=== PATIENT | female | born 1950 | race Caucasian/White ===

== ENCOUNTER 2021-02-13 14:25 | Outpatient (REF) | payer SELFPAY ==
--- NOTE | ~2021-02-13 | MM_ITS ---
EXAMINATION: MM SCREENING DIGITAL BREAST TOMOSYNTHESIS, BILATERAL CLINICAL INFORMATION: Screening. Asymptomatic. The lifetime risk of breast cancer based on the Tyrer-Cuzick Model is 5%. COMPARISON: Mammography: 05/27/2019, 04/30/2018, outside exam 08/28/2012 ([facility]) TECHNIQUE: Digital breast tomosynthesis is performed in both the craniocaudal and mediolateral oblique views along with computer-aided detection (CAD). Synthesized 2D images are generated from the tomosynthesis. FINDINGS: There are scattered areas of fibroglandular density (ACR BI-RADS breast composition Category b). Breast tissue composition borders on predominantly fatty. There is no developing density or interval mass or architectural abnormality. Dermal lesion is again seen overlying the posterior inferior medial left breast. No abnormal calcifications. The axilla and skin contours are unremarkable. MM/MM tomosynthesis screening BI IMPRESSION: No mammographic evidence of malignancy. ASSESSMENT: BI-RADS 2: Benign RECOMMENDATION: Routine annual mammography screening. This patient's information was entered into a reminder system with a target due date for their next mammogram.
== END 2021-02-13 14:26 | disposition home or self-care (01) ==
LOC: HO.MAMMO 14:25
PROVIDERS: Visit Provider Internal Medicine
DX: Z12.31 Encounter for screening mammogram for malignant neoplasm of breast (principal)
CPT/HCPCS: 77063; 77067

== ENCOUNTER 2024-11-02 12:57 | Outpatient (REF) | payer BC, MEDICARE, SELFPAY | END 2024-11-02 12:58 | disposition home or self-care (01) | LOC: HO.MAMMO 12:57 | PROVIDERS: Visit Provider Internal Medicine | DX: Z12.31 Encounter for screening mammogram for malignant neoplasm of breast (principal) | CPT/HCPCS: 77063; 77067 ==

== ENCOUNTER → 2024-11-02 13:00 | Outpatient (BNV) | payer BC, MEDICARE, SELFPAY | PROVIDERS: Visit Provider Internal Medicine | DX: Z12.31 Encounter for screening mammogram for malignant neoplasm of breast (principal) | CPT/HCPCS: 77063; 77067 ==

== ENCOUNTER 2025-05-21 10:05 | Outpatient (REF) | payer BC, MEDICARE, OTHER, SELFPAY ==
--- OUTSIDE RECORDS SUMMARY | 2025-05-21 11:20 | XMS_ITS | Encounter Summary ---
Author Organization [facility] [place] [address] Care Team Providers Care Dispensing And Measuring Optician Name Role Phone Bi Morfin MD Primary Care Provider [phone] Encounter Details Date Type Department Care Team (Late st Contact Info) Description 02/12/2025 Lab Requisition [facility] - Main Lab [address] [place] [address] Bella Maravilla MD [address] [place] [address] Essential (primary) hypertension Social History Tobacco Use Types Packs/Day Years Used Date Smoking Tobacco: Never Assessed Comments Unknown Sex and Gender Information Value Date Recorded Sex Assigned at Not on file Legal Sex Female 11:38 AM EDT Gender Identity Not on file Sexual Orientation Not on file documented as of this encounter Plan of Treatment Not on file documented as of this encounter Procedures Procedure Name Priority Date/Time Associated Diagnosis Comments COMPLETE BLOOD COUNT Routine 02/15/2025 5:19 AM EDT Essential (primary) hypertension BASIC METABOLIC PANEL Routine 02/15/2025 5:19 AM EDT Essential (primary) hypertension documented in this encounter Results * (ABNORMAL) Complete blood count (02/15/2025 5:19 AM EDT) [facility] Signature WBC 5.3 4.8 - 10.8 K/[facility] LAB HEMETOLOGY METHOD 02/15/2025 10:40 AM EDT [facility] RBC 3.70(L) 3.80 - 4.80 M/mcL LAB HEMETOLOGY METHOD 02/15/2025 10:40 AM [facility] LAB Hemoglobin 11.4(L) 11.5 - 16.0 g/dL LAB HEMETOLOGY METHOD 02/15/2025 10:40 AM [facility] LAB Hematocrit 34.9(L) 35.0 - 47.0 % LAB HEMETOLOGY METHOD 02/15/2025 10:40 AM [facility] LAB MCV 94.1 79.0 - 98.0 FL LAB HEMETOLOGY METHOD 02/15/2025 10:40 AM [facility] LAB MCH 30.7 27.0 - 32.0 pcg LAB HEMETOLOGY METHOD 02/15/2025 10:40 AM [facility] LAB MCHC 32.7 32.0 - 37.0 g/dL LAB HEMETOLOGY METHOD 02/15/2025 10:40 AM [facility] LAB RDW 14.3 11.0 - 15.0 % LAB HEMETOLOGY METHOD 02/15/2025 10:40 AM [facility] LAB Platelets 208 130 - 400 K/mcL LAB HEMETOLOGY METHOD 02/15/2025 10:40 AM [facility] LAB MPV 9.4 7.0 - 11.0 FL LAB HEMETOLOGY METHOD 02/15/2025 10:40 AM [facility] LAB NRBC 0.0 <1.0 % LAB HEMETOLOGY METHOD 02/15/2025 10:40 AM [facility] LAB NRBC Absolute 0.00 <0.10 K/mcL LAB HEMETOLOGY METHOD 02/15/2025 10:40 AM [facility] LAB Blood Venous blood specimen / Unknown Venipuncture / Unknown 02/15/2025 5:19 AM EDT 02/15/2025 10:08 AM EDT us Bella Maravilla MD LAB BLOOD ORDERABLES Final Resul t [facility] [address] [place] [address], [place] [phone] * (ABNORMAL) Basic metabolic panel (02/15/2025 5:19 AM EDT) Sodium 146(H) 133 - 145 mmol/L LAB CHEMISTRY METHOD 02/15/2025 11:48 AM [facility] Potassium 3.3(L) 3.5 - 5.5 mmol/L LAB CHEMISTRY METHOD 02/15/2025 11:48 AM [facility] Chloride 106 96 - 110 mmol/L LAB CHEMISTRY METHOD 02/15/2025 11:48 AM [facility] CO2 29 21 - 32 mmol/L LAB CHEMISTRY METHOD 02/15/2025 11:48 AM [facility] Anion Gap 11 3 - 11 LAB CHEMISTRY METHOD 02/15/2025 11:48 AM [facility] Glucose 83 70 - 100 mg/dL LAB CHEMISTRY METHOD 02/15/2025 11:48 AM [facility] BUN 14 5 - 25 mg/dL LAB CHEMISTRY METHOD 02/15/2025 11:48 AM [facility] Creatinine 0.66 0.50 - 1.10 mg/dL LAB CHEMISTRY METHOD 02/15/2025 11:48 AM [facility] LAB eGFR 91 >=60 mL/min/1. 73m2 LAB CHEMISTRY METHOD 02/15/2025 11:48 AM [facility] LAB Comment:Calculation based on the Chronic Kidney Disease Epidemiology Collaboration (CKD-EPI) equation refit without adjustment for race. BUN/Creatinine Ratio 21.2 LAB CHEMISTRY METHOD 02/15/2025 11:48 AM EDT [facility] Calcium 9.7 8.5 - 10.5 mg/dL LAB CHEMISTRY METHOD 02/15/2025 11:48 AM EDT [facility] Blood Venous blood specimen / Unknown Venipuncture / Unknown 02/15/2025 5:19 AM EDT 02/15/2025 10:08 AM EDT us Bella Maravilla MD LAB BLOOD ORDERABLES Final Resul t [facility] [address] [place] [address], documented in this encounter Visit Diagnoses Diagnosis Essential (primary) hypertension Unspecified essential hypertension documented in this encounter Care Teams Dispensing And Measuring Optician Relationship Specialty Start Date End Date Bi Morfin MD [address] [place] [address] PCP - General Internal Medicine 01/18/25 documented as of this encounter
--- OUTSIDE RECORDS SUMMARY | 2025-05-21 11:20 | XMS_ITS | Patient Health Record ---
Author Organization [facility] Address [address] [place] [address] Care Team Providers Care Epic Trainer Name Role Phone Caleb SHAH, Yohana Primary Care Provider Anuel Paredes Unavailable [phone] Zoë SHAH, Madelin Unavailable Unavailable Reason For Referral No Information Social History Tobacco Use: Social History Observation Description Date Details (start date - stop date) Never Smoker NA - NA Tobacco Use/Smoking Question Answer Notes Patient is a nonsmoker Plan Of Treatment No Information Insurance Providers Payer Name Payer Address Payer Phone Subscriber Number Group Number Insured Name Patient Relationship to Insured Coverage Start Date Coverage End Date MEDICARE OF [place] [address] [facility] [id number] [id number] MARY DEMPSEY Self - patient is the insured Medical (General) History Medical History History ICD Code hypothyroidism hypertension Surgical History Surgery Date(Month/Year) hysterectomy bilateral hip replacement in 2002 tonsillectomy
--- OUTSIDE RECORDS SUMMARY | 2025-05-21 11:20 | XMS_ITS | Encounter Summary ---
Author Organization [facility] [place] [address] Care Team Providers Care Reach Truck Operator Name Role Phone Bi Morfin MD Primary Care Provider [phone] Encounter Details Date Type Department Care Team (Late st Contact Info) Description 02/19/2025 Lab Requisition [facility] - Main Lab [address] [facility] [place] [address] Bella Maravilla MD [address] [place] [address] Essential (primary) hypertension Social History Tobacco Use Types Packs/Day Years Used Date Smoking Tobacco: Never Assessed Comments Unknown Sex and Gender Information Value Date Recorded Sex Assigned at Not on file Legal Sex Female 11:38 AM EDT Gender Identity Not on file Sexual Orientation Not on file documented as of this encounter Plan of Treatment Not on file documented as of this encounter Visit Diagnoses Diagnosis Essential (primary) hypertension Unspecified essential hypertension documented in this encounter Care Teams Reach Truck Operator Relationship Specialty Start Date End Date Bi Morfin MD [address] [place] [address] PCP - General Internal Medicine 01/18/25 documented as of this encounter
--- OUTSIDE RECORDS SUMMARY | 2025-05-21 11:20 | XMS_ITS | Encounter Summary ---
Author Organization [facility] Address [address] [place] [address] Care Team Providers Care Bulb Grower Name Role Phone Bi Morfin MD Primary Care Provider [phone] Encounter Details Date Type Department Care Team (Latest Contact Info) Description 02/08/2025 Lab Requisition [facility] - Main Lab [address] [facility] [place] [address] Tanya Trotter PA [address] [place] [address] Essential (primary) hypertension; Hypothyroidism, unspecified; Vitamin D deficiency, unspecified; Type 2 diabetes mellitus without complications (CMS/HCC V24, CMS/[facility] V28) Social History Tobacco Use Types Packs/Day Years [...] Procedure Name Priority Date/Time Associated Diagnosis Comments VITAMIN D 25 HYDROXY Routine 02/08/2025 5:10 AM EDT Essential (primary) hypertension Hypothyroidism, unspecified Vitamin D deficiency, unspecified Type 2 diabetes mellitus without complications (CMS/HCC V24, CMS/HCC V28) COMPLETE BLOOD COUNT Routine 02/08/2025 5:10 AM EDT Essential (primary) hypertension Hypothyroidism, unspecified Vitamin D deficiency, unspecified Type 2 diabetes mellitus without complications (CMS/HCC V24, CMS/HCC V28) THYROID STIMULATING HORMONE Routine 02/08/2025 5:10 AM EDT Essential (primary) hypertension Hypothyroidism, unspecified Vitamin D deficiency, unspecified Type 2 diabetes mellitus without complications ([facility] V24, [facility] V28) MAGNESIUM Routine 02/08/2025 5:10 AM EDT Essential (primary) hypertension Hypothyroidism, unspecified Vitamin D deficiency, unspecified Type 2 diabetes mellitus without complications ([facility] V24, [facility] V28) HEMOGLOBIN A1C Routine 02/08/2025 5:10 AM EDT Essential (primary) hypertension Hypothyroidism, unspecified Vitamin D deficiency, unspecified Type 2 diabetes mellitus without complications ([facility] V24, [facility] V28) FOLATE Routine 02/08/2025 5:10 AM EDT Essential (primary) hypertension Hypothyroidism, unspecified Vitamin D deficiency, unspecified Type 2 diabetes mellitus without complications ([facility] V24, [facility] V28) COMPREHENSIVE METABOLIC PANEL Routine 02/08/2025 5:10 AM EDT Essential (primary) hypertension Hypothyroidism, unspecified Vitamin D deficiency, unspecified Type 2 diabetes mellitus without complications ([facility] V24, [facility] V28) documented in this encounter Results * Hemoglobin A1c (02/08/2025 5:10 AM EDT) Hemoglobin A1C 4.8 <6.5 % LAB CHEMISTRY METHOD 02/08/2025 2:24 PM EDT [facility] Mean Bld Glu Estim. 91 mg/dL LAB CHEMISTRY METHOD 02/08/2025 2:24 PM EDT [facility] Blood Venous blood specimen / Unknown Venipuncture / Unknown 02/08/2025 5:10 AM EDT 02/08/2025 10:14 AM EDT us Tanya RAMIREZ LAB BLOOD ORDERABLES Final Resu lt [facility] [address] [place] [address], [place] [phone] * Vitamin D 25 hydroxy (02/08/2025 5:10 AM EDT) Pathologist [facility] Vit D, 25-Hydroxy 35.5 30.0 - 80.0 ng/mL LAB CHEMISTRY METHOD 02/08/2025 3:10 PM EDT [facility] Blood Venous blood specimen / Unknown Venipuncture / Unknown 02/08/2025 5:10 AM EDT 02/08/2025 10:14 AM EDT us Tanya RAMIREZ LAB BLOOD ORDERABLES Final Resu lt Performing Organization Address [facility]/ZIP Co de Phone Number [facility] [address] [place] [address], * Magnesium (02/08/2025 5:10 AM EDT) [facility] Magnesium 2.1 1.9 - 2.6 mg/dL LAB CHEMISTRY METHOD 02/08/2025 2:07 PM EDT [facility] Blood Venous blood specimen / Unknown Venipuncture / Unknown 02/08/2025 5:10 AM EDT 02/08/2025 10:14 AM EDT us Tanya RAMIREZ LAB BLOOD ORDERABLES Final Resu lt [facility] [address] [place] [address], * Folate (02/08/2025 5:10 AM EDT) [facility] Folate 16.1 2.8 - 17.0 ng/ml LAB CHEMISTRY METHOD 02/08/2025 2:24 PM EDT [facility] Blood Venous blood specimen / Unknown Venipuncture / Unknown 02/08/2025 5:10 AM EDT 02/08/2025 10:14 AM EDT us Tanya RAMIREZ LAB BLOOD ORDERABLES Final Resu lt Performing Organization Address [facility]/ZIP Co de Phone Number [facility] [address] [place] [address], [place] [phone] * Thyroid stimulating hormone (02/08/2025 5:10 AM EDT) [facility] TSH 4.00 0.40 - 4.00 mcIU/mL LAB CHEMISTRY METHOD 02/08/2025 3:10 PM EDT [facility] Blood Venous blood specimen / Unknown Venipuncture / Unknown 02/08/2025 5:10 AM EDT 02/08/2025 10:14 AM EDT us Tanya RAMIREZ LAB BLOOD ORDERABLES Final Resu lt Performing Organization Address [facility] Co de Phone Number [facility] [address] [place] [address], [place] [phone] * (ABNORMAL) Comprehensive metabolic panel (02/08/2025 5:10 AM EDT) [facility] Sodium 138 133 - 145 mmol/L LAB CHEMISTRY METHOD 02/08/2025 2:07 PM EDT [facility] Potassium 3.7 3.5 - 5.5 mmol/L LAB CHEMISTRY METHOD 02/08/2025 2:07 PM EDT [facility] Chloride 100 96 - 110 mmol/L LAB CHEMISTRY METHOD 02/08/2025 2:07 PM EDT [facility] CO2 31 21 - 32 mmol/L LAB CHEMISTRY METHOD 02/08/2025 2:07 PM T [facility] Anion Gap 7 3 - 11 LAB CHEMISTRY METHOD 02/08/2025 2:07 PM EDT [facility] Glucose 81 70 - 100 mg/dL LAB CHEMISTRY METHOD 02/08/2025 2:07 PM [facility] BUN 17 5 - 25 mg/dL LAB CHEMISTRY METHOD 02/08/2025 2:07 PM [facility] Creatinine 0.70 0.50 - 1.10 mg/dL LAB CHEMISTRY METHOD 02/08/2025 2:07 PM [facility] eGFR 90 >=60 mL/min/1. 73m2 LAB CHEMISTRY METHOD 02/08/2025 2:07 PM [facility] Comment:Calculation based on the Chronic Kidney Disease Epidemiology Collaboration (CKD-EPI) equation refit without adjustment for race. BUN/Creatinine Ratio 24.3 LAB CHEMISTRY METHOD 02/08/2025 2:07 PM [facility] Calcium 9.9 8.5 - 10.5 mg/dL LAB CHEMISTRY METHOD 02/08/2025 2:07 PM [facility] AST (SGOT) 13 10 - 42 unit/L LAB CHEMISTRY METHOD 02/08/2025 2:07 PM [facility] ALT (SGPT) 17 10 - 60 unit/L LAB CHEMISTRY METHOD 02/08/2025 2:07 PM [facility] Alkaline Phosphatase 105 42 - 121 unit/L LAB CHEMISTRY METHOD 02/08/2025 2:07 PM [facility] Total Protein 5.8(L) 6.0 - 8.0 g/dL LAB CHEMISTRY METHOD 02/08/2025 2:07 PM [facility] Albumin 3.6 3.2 - 5.0 g/dL LAB CHEMISTRY METHOD 02/08/2025 2:07 PM [facility] Total Bilirubin 1.7(H) 0.0 - 1.4 mg/dL LAB CHEMISTRY METHOD 02/08/2025 2:07 PM [facility] Blood Venous blood specimen / Unknown Venipuncture / Unknown 02/08/2025 5:10 AM EDT 02/08/2025 10:14 AM EDT us Tanya RAMIREZ LAB BLOOD ORDERABLES Final Resu lt [facility] [address] [place] [address], [place] [phone] * Complete blood count (02/08/2025 5:10 AM EDT) WBC 5.6 4.8 - 10.8 K/mcL LAB HEMETOLOGY METHOD 02/08/2025 11:38 AM EDT [facility] RBC 3.80 3.80 - 4.80 M/mcL LAB HEMETOLOGY METHOD 02/08/2025 11:38 AM EDT [facility] Hemoglobin 11.8 11.5 - 16.0 g/dL LAB HEMETOLOGY METHOD 02/08/2025 11:38 AM EDT [facility] Hematocrit 36.2 35.0 - 47.0 % LAB HEMETOLOGY METHOD 02/08/2025 11:38 AM EDT [facility] MCV 95.0 79.0 - 98.0 FL LAB HEMETOLOGY METHOD 02/08/2025 11:38 AM EDT [facility] MCH 31.0 27.0 - 32.0 pcg LAB HEMETOLOGY METHOD 02/08/2025 11:38 AM EDT [facility] MCHC 32.6 32.0 - 37.0 g/dL LAB HEMETOLOGY METHOD 02/08/2025 11:38 AM EDT [facility] RDW 14.6 11.0 - 15.0 % LAB HEMETOLOGY METHOD 02/08/2025 11:38 AM T [facility] Platelets 233 130 - 400 K/mcL LAB HEMETOLOGY METHOD 02/08/2025 11:38 AM EDT [facility] MPV 9.3 7.0 - 11.0 FL LAB HEMETOLOGY METHOD 02/08/2025 11:38 AM EDT [facility] NRBC 0.0 <1.0 % LAB HEMETOLOGY METHOD 02/08/2025 11:38 AM EDT [facility] NRBC Absolute 0.00 <0.10 K/mcL LAB HEMETOLOGY METHOD 02/08/2025 11:38 AM EDT [facility] Blood Venous blood specimen / Unknown Venipuncture / Unknown 02/08/2025 5:10 AM EDT 02/08/2025 10:14 AM EDT us Tanya RAMIREZ LAB BLOOD ORDERABLES Final Resu lt [facility] [address] [place] [address], documented in this encounter Visit Diagnoses Diagnosis Essential (primary) hypertension Unspecified essential hypertension Hypothyroidism, unspecified Vitamin D deficiency, unspecified Type 2 diabetes mellitus without complications (CMS/HCC V24, CMS/HCC V28) documented in this encounter Care Teams Bulb Grower Relationship Specialty Start Date End Date Bi Morfin MD [address] [place] [address] PCP - General Internal Medicine 01/18/25 documented as of this encounter
--- OUTSIDE RECORDS SUMMARY | 2025-05-21 11:20 | XMS_ITS | Encounter Summary ---
Author Organization [facility] [place] [address] Care Team Providers Care Plant Quality Manager Name Role Phone Bi Morfin MD Primary Care Provider [phone] Encounter Details Date Type Department Care Team (Late st Contact Info) Description 02/17/2025 Lab Requisition [facility] - Main Lab [address] [facility] [place] [address] Bella Maravilla MD [address] [place] [address] Hypokalemia Social History Tobacco Use Types Packs/Day Years [...] Procedure Name Priority Date/Time Associated Diagnosis Comments MAGNESIUM Routine 02/18/2025 5:24 AM EDT Hypokalemia BASIC METABOLIC PANEL Routine 02/18/2025 5:24 AM EDT Hypokalemia documented in this encounter Results * Magnesium (02/18/2025 5:24 AM EDT) Magnesium 1.9 1.9 - 2.6 mg/dL LAB CHEMISTRY METHOD 02/18/2025 11:11 AM EDT [facility] Blood Venous blood specimen / Unknown Venipuncture / Unknown 02/18/2025 5:24 AM EDT 02/18/2025 10:30 AM EDT us Bella Maravilla MD LAB BLOOD ORDERABLES Final Resul t [facility] [address] [place] [address], [place] [phone] * Basic metabolic panel (02/18/2025 5:24 AM EDT) Sodium 140 133 - 145 mmol/L LAB CHEMISTRY METHOD 02/18/2025 11:[address] [facility] Potassium 3.7 3.5 - 5.5 mmol/L LAB CHEMISTRY METHOD 02/18/2025 11:[address] [facility] Chloride 103 96 - 110 mmol/L LAB CHEMISTRY METHOD 02/18/2025 11:[address] [facility] CO2 32 21 - 32 mmol/L LAB CHEMISTRY METHOD 02/18/2025 11:[address] [facility] Anion Gap 5 3 - 11 LAB CHEMISTRY METHOD 02/18/2025 11:[address] [facility] Glucose 86 70 - 100 mg/dL LAB CHEMISTRY METHOD 02/18/2025 11:[address] [facility] BUN 19 5 - 25 mg/dL LAB CHEMISTRY METHOD 02/18/2025 11:[address] [facility] Creatinine 0.64 0.50 - 1.10 mg/dL LAB CHEMISTRY METHOD 02/18/2025 11:[address] [facility] eGFR 92 >=60 mL/min/1. 73m2 LAB CHEMISTRY METHOD 02/18/2025 11:[address] [facility] Comment:Calculation based on the Chronic Kidney Disease Epidemiology Collaboration (CKD-EPI) equation refit without adjustment for race. BUN/Creatinine Ratio 29.7 LAB CHEMISTRY METHOD 02/18/2025 11:11 AM EDT [facility] Calcium 10.1 8.5 - 10.5 mg/dL LAB CHEMISTRY METHOD 02/18/2025 11:11 AM EDT [facility] Blood Venous blood specimen / Unknown Venipuncture / Unknown 02/18/2025 5:24 AM EDT 02/18/2025 10:30 AM EDT us Bella Maravilla MD LAB BLOOD ORDERABLES Final Resul t [facility] [address] [place] [address], documented in this encounter Visit Diagnoses Diagnosis Hypokalemia Hypopotassemia documented in this encounter Care Teams Plant Quality Manager Relationship Specialty Start Date End Date Bi Morfin MD [address] [place] [address] PCP - General Internal Medicine 01/18/25 documented as of this encounter
--- OUTSIDE RECORDS SUMMARY | 2025-05-21 11:21 | XMS_ITS | Clinical Summary ---
Author Organization [facility] Address [address] [place] [address] Phone Care Team Providers Care Pipe Setter Name Role Phone iB Morfin MD Primary Care Provider [phone] Allergies No known active allergies Medications oxyCODONE (ROXICODONE) 5 mg immediate release tablet Take 1 tablet (5 mg total) by mouth every 6 (six) hours if needed for severe pain for up to 12 doses. Partial fill on request Max Daily Amount: 20 mg 12 tablet 5 Active metFORMIN (GLUCOPHAGE) 500 mg tablet Take 1 tablet (500 mg total) by mouth 3 (three) times a day. Active atenoloL (TENORMIN) 50 mg tablet Take 1 tablet (50 mg total) by mouth 1 (one) time each day. Active celecoxib (CeleBREX) 200 mg capsule Take 1 capsule (200 mg total) by mouth 1 (one) time each day with breakfast. Active furosemide (LASIX) 20 mg tablet Take 1 tablet (20 mg total) by mouth 1 (one) time each day. Active levothyroxine (SYNTHROID, LEVOTHROID) 100 mcg tablet Take 1 tablet (100 mcg total) by mouth 1 (one) time each day before breakfast. Active fluticasone propionate (FLOVENT DISKUS) 50 mcg/actuation diskus inhaler Inhale 2 puffs by mouth 1 (one) time each day. Rinse mouth with water after use to reduce aftertaste and incidence of candidiasis. Do not swallow. Active loratadine (CLARITIN) 10 mg tablet Take 1 tablet (10 mg total) by mouth 1 (one) time each day. Active oxyCODONE (OXY-IR) 5 mg immediate release capsule Take 1 capsule (5 mg total) by mouth every 6 (six) hours if needed for severe pain for up to 10 doses. Max Daily Amount: 20 mg 10 capsule Active Encounters Date Type Department Care Team Description 02/19/2025 Lab Requisition [facility] Lab [address] [place] [address] Bella Maravilla MD Essential (primary) hypertension 02/17/2025 Lab Requisition [facility] [address] [place] [address] Bella Maravilla MD Hypokalemia from Last 3 Months Social History Tobacco Use Types Packs/Day Years Used Date Smoking Tobacco: Never Assessed Comments Unknown Sex and Gender Information Value Date Recorded Sex Assigned at Not on file Legal Sex Female 11:38 AM EDT Gender Identity Not on file Sexual Orientation Not on file Last Filed Vital Signs Vital Sign Reading Time Taken Comments Blood Pressure 143/64 02/05/2025 2:29 PM EDT Pulse 67 02/05/2025 2:29 PM EDT Temperature 36.7 C (98.1 F) 02/05/2025 2:29 PM EDT Respiratory Rate 18 02/05/2025 2:29 PM EDT Oxygen Saturation 97% 02/05/2025 2:29 PM EDT Inhaled Oxygen Concentration - - Weight 103 kg (228 lb) 02/04/2025 7:49 PM EDT Height 163.8 cm (5' 4.5 ) 02/04/2025 7:49 PM EDT Body Mass Index 38.53 02/04/2025 7:49 PM EDT Plan of Treatment Health Maintenance Due Date Last Done Comments DTaP,Tdap,and Td Vaccines (1 - Tdap) 1969 Pneumococcal Vaccine: 50+ Years (1 of 2 - PCV) 1967 Zoster Vaccines (1 of 2) 1998 Cholesterol Screening (Lipid Panel) 06/09/2024 Falls Risk Assessment 06/09/2024 Hepatitis C Screening 06/09/2024 Medicare Annual Wellness Visit 06/09/2024 Osteoporosis Screening (Bone Density Screening) 06/09/2024 Social Influencers of Health Screening 06/09/2024 Depression Screening 08/26/2024 COVID-19 Vaccine ( season) 2025 05/29/2024, 03/09/2024, 05/13/2023, Additional history exists Influenza Vaccine (#1) 2025 , 04/28/2023, 06/08/2022 Hypertension/CHF/CAD Annual BMP Blood Test 02/18/2026 02/18/2025, 02/15/2025, 02/08/2025, Additional history exists RSV Immunization Adult Patients Completed 06/17/2023 HIB Vaccines Aged Out No longer eligi ble based on patient's age to complete this topic HPV Vaccines Aged Out No longer eligi ble based on patient's age to complete this topic Hepatitis A Vaccines Aged Out No long er eligible based on patient's age to complete this topic Hepatitis B Vaccines Aged Out No long er eligible based on patient's age to complete this topic IPV Vaccines Aged Out No longer eligi ble based on patient's age to complete this topic MMR Vaccines Aged Out No longer eligi ble based on patient's age to complete this topic Meningococcal ACWY Vaccine Aged Out N o longer eligible based on patient's age to complete this topic Meningococcal B Vaccine Aged Out No l onger eligible based on patient's age to complete this topic RSV Immunization Patients Under 20 months Aged Out No longer eligible based on patient's age to complete this topic Varicella Vaccines Aged Out No longer eligible based on patient's age to complete this topic Procedures Procedure Name Priority Date/Time Associated Diagnosis Comments MAGNESIUM Routine 02/18/2025 5:24 AM EDT Hypokalemia BASIC METABOLIC PANEL Routine 02/18/2025 5:24 AM EDT Hypokalemia from Last 3 Months Results * Magnesium (02/18/2025 5:24 AM EDT) Magnesium 1.9 1.9 - 2.6 mg/dL LAB CHEMISTRY METHOD 02/18/2025 11:11 AM EDT [facility] Blood Venous blood specimen / Unknown Venipuncture / Unknown 02/18/2025 5:24 AM EDT 02/18/2025 10:30 AM EDT us Bella Maravilla MD LAB BLOOD ORDERABLES Final Resul t [facility] [address] [place] [address], * Basic metabolic panel (02/18/2025 5:24 AM EDT) Pathologist [facility] Sodium 140 133 - 145 mmol/L LAB CHEMISTRY METHOD 02/18/2025 11:11 AM [facility] Potassium 3.7 3.5 - 5.5 mmol/L LAB CHEMISTRY METHOD 02/18/2025 11:11 AM [facility] Chloride 103 96 - 110 mmol/L LAB CHEMISTRY METHOD 02/18/2025 11:11 AM [facility] CO2 32 21 - 32 mmol/L LAB CHEMISTRY METHOD 02/18/2025 11:11 AM [facility] Anion Gap 5 3 - 11 LAB CHEMISTRY METHOD 02/18/2025 11:11 AM [facility] Glucose 86 70 - 100 mg/dL LAB CHEMISTRY METHOD 02/18/2025 11:11 AM [facility] BUN 19 5 - 25 mg/dL LAB CHEMISTRY METHOD 02/18/2025 11:11 AM [facility] Creatinine 0.64 0.50 - 1.10 mg/dL LAB CHEMISTRY METHOD 02/18/2025 11:11 AM [facility] LAB eGFR 92 >=60 mL/min/1. 73m2 LAB CHEMISTRY METHOD 02/18/2025 11:11 AM [facility] LAB Comment:Calculation based on the Chronic Kidney Disease Epidemiology Collaboration (CKD-EPI) equation refit without adjustment for race. BUN/Creatinine Ratio 29.7 LAB CHEMISTRY METHOD 02/18/2025 11:11 AM EDT [facility] Calcium 10.1 8.5 - 10.5 mg/dL LAB CHEMISTRY METHOD 02/18/2025 11:11 AM EDT [facility] Blood Venous blood specimen / Unknown Venipuncture / Unknown 02/18/2025 5:24 AM EDT 02/18/2025 10:30 AM EDT us Bella Maravilla MD LAB BLOOD ORDERABLES Final Resul t [facility] [address] [place] [address], [place] [phone] from Last 3 Months Insurance MEDICARE [facility] Member Subscriber Plan / Payer (Ef fective 2024-Present) Name:MARY SALGUERO Relation to Subscriber:Spouse Name:CHAMP YADAV Dionisio Date of :1899 Address: [address] [place] [id number] Payer ID:[id number] Group ID:[id number] Type:Not on file Address: [facility] [id number] [place] [address] [facility] Advance Directives Documents on File Type Date Recorded Patient Journeyman Sheet Metal Worker Expl anation Advance Directives and Livin g Will 02/10/2025 2:14 PM PROXY Care Teams Pipe Setter Relationship Specialty Start Date End Date Bi Morfin MD [address] [place], [place] [address]A[place] lees PCP - General Internal Medicine 01/18/25
[2025-05-21 13:22] LABS: Appearance Urine Clear; Glucose Urine UA Negative (Negative); PH 6.5 (5.0-9.0); Specific Gravity - Urine 1.010 (1.005-1.025); UMIC TRIGGER UA YES
[2025-05-21 13:29] LABS: Hematocrit 39.0 % (37.0-47.0); Hemoglobin 13.0 g/dl (12.0-16.0); Mean Corpuscular HGB Conc 33.3 g/dl (31.0-35.0); Mean Corpuscular Hemoglobin 30.5 pg (27.0-33.0); Mean Corpuscular Volume 91.5 fL (80.0-98.0); NRBC Abs Auto 0.000 X10*3/uL (0.0-0.012); NRBC Pct Auto 0.0 /100WBC (0.0-0.2); Platelet Count 216 X10*3/uL (160-400); Red Blood Count 4.26 X10*6/uL (4.20-5.50); White Blood Count 5.2 X10*3/uL (4.8-10.8)
[2025-05-21 14:31] LABS: Alanine Aminotransferase 18 U/L (0-31); Albumin Level 4.4 g/dL (3.5-5.0); Alkaline Phosphatase 81 U/L (39-117); Anion Gap 11 (12-20); Aspartate Amino Transferase 23 U/L (5-31); Blood Urea Nitrogen 17 mg/dL (9-16); Calcium 9.6 mg/dL (8.4-10.2); Carbon Dioxide 29 mmol/L (22-29); Chloride 105 mmol/L (96-108); Cholesterol 183 mg/dL (<200); Estimated Glomerular Filt Rate > 60; HDL Cholesterol 35 mg/dL (>40); Potassium 4.0 mmol/L (3.3-5.1); Sodium 141 mmol/L (135-145); Thyroid Stimulating Hormone 2.95 uIU/mL (0.32-4.0); Total Protein 6.6 g/dL (6.5-8.0); Triglycerides 163 mg/dL (<150)
== END 2025-05-21 10:06 | disposition home or self-care (01) ==
LOC: HO.HMGCLDS 10:05
PROVIDERS: PCP Internal Medicine; Visit Provider Internal Medicine
DX: E03.9 Hypothyroidism, unspecified (principal)
CPT/HCPCS: 36415; 80048; 80061; 80076; 81001; 84443; 85027

== ENCOUNTER 2025-05-25 13:05 | Outpatient (AMB) | payer BC, MEDICARE, OTHER, SELFPAY ==
--- NOTE | 2025-05-25 13:26 | MHC.PC.OV ---
Vital Signs 05/25/25 13:29 05/25/25 13:42 Height 5 ft 4.96 in Weight 231 lb BMI 38.5 BP 172/72 H 158/70 H Respiration 16 Pulse 64 Pulse Source Pulse Oximeter Temp 97.8 F Temp Source Temporal Artery Scan Pulse Oximetry (%) 97 Oxygen Delivery Method Room Air Intake Visit Reasons: New Patient / Dr Morfin Load Planner Required: No Accompanied by: Spouse Allergies Flu shot Allergy (Mild, Uncoded 05/25/25 14:01) Unknown general anesthesia Allergy (Unknown, Uncoded 05/25/25 14:01) vomiting Medication List - Last Reconciled 05/25/25 by Ej Palacios MD atenolol 100 mg PO DAILY celecoxib 200 mg PO DAILY fluticasone propionate 50 mcg/actuation 2 sprays intranasal DAILY furosemide (Lasix) 20 mg PO QAM levothyroxine 100 mcg PO DAILY loratadine (Claritin) 10 mg PO DAILY metformin mg PO Tobacco use date assessed: 05/25/25 Fall risk assessment: 1 Fall in past year Last assessed Fall Risk: 05/25/25 Dental Screening Dental Screen Date: 05/25/25 Did you have a dental visit in the last 12 months?: No Did you have a dental problem in the last 6 months where you did not have access to dental care?: No Was dental information given to patient?: Patient has dentist HPI New Patient / Dr Morfin HPI Details 75-year-old female presents to the office to establish her medical care. Patient has had a fall and injured her right shoulder. She was diagnosed to have a humerus fracture. It has finally been decided that she would have surgery but the date is not fixed yet. Continues to have pain and limited motion in the right upper extremity. Patient is compliant with her other medications. Able to function and do all activities of daily living. [facility] Medical History (Updated 05/25/25 @ 14:05 by Ej Palacios MD) Hypothyroidism Hypertension Surgical History History of total hip arthroplasty Family History Mother Acute arthritis Father BP (high blood pressure) Social History Housing: House Alcohol intake: current Alcohol intake frequency: does not drink Patient Tobacco Use Status: Never used Tobacco service: No Current occupational status: retired Cognitive needs: Yes (cane) Hearing needs: No Vision needs: Yes (rx glasses) Questionnaire PHQ-9 Over the last 2 weeks, how often have you been bothered by any of the following problems? 1. Little interest or pleasure in doing things: not at all 2. Feeling down, depressed, or hopeless: not at all 3. Trouble falling or staying asleep, or sleeping too much: not at all 4. Feeling tired or having little energy: not at all 5. Poor appetite or overeating: not at all 6. Feeling bad about yourself - or that you are a failure or have let yourself or your family down: not at all 7. Trouble concentrating on things, such as reading the newspaper or watching television: not at all 8. Moving or speaking so slowly that other people could have noticed. Or the opposite - being so fidgety or restless that you have been moving around a lot more than usual: not at all 9. Thoughts that you would be better off or of hurting yourself in some way: not at all Total score: 0 Source: Developed by Drs. Anuel Rivas, Jolie Rosas, Harjinder Gomez and colleagues, with an educational hansa from [employer]. Thrive Questionnaire Date Thrive assessed: 05/25/25 I am a: Patient What is your living situation today?: I have a steady place to live Within the past 12 months, did the food you bought not last and you didn't have the money to get more?: Never true Within the past 12 months, did you worry whether your food would run out before you got money to buy more?: Never true Do you have trouble paying for medicines?: No Do you have trouble getting transportation to medical appointments?: No Do you have trouble paying your heating and electricity bill?: No Do you have trouble taking care of your child, family member or friend?: No Do you have trouble with day-to-day activities such as bathing, preparing meals, shopping, managing finances, etc.?: No Are you currently unemployed and looking for a job?: No Are you interested in more education?: No Please select the resources that you would like help with: None THRIVE Score: 0 AUDIT C Alcohol Use Questionnaire (AUDIT-C) 1. How often do you have a drink containing alcohol?: Never 3. How often do you have six or more drinks on one occasion?: Never Total Score: 0 JULIANA-7 AMB Questionnaire JULIANA-7 Date JULIANA - 7 assessed: 05/25/25 Feeling nervous, anxious, or on edge: 0 = Not at all Not being able to stop or control worryin = Not at all Worrying too much about different things: 0 = Not at all Trouble relaxin = Not at all Being so restless that it is hard to sit still: 0 = Not at all Becoming easily annoyed or irritable: 0 = Not at all Feeling afraid as if something awful might happen: 0 = Not at all Total JULIANA-7 score (0-4 normal; 5-9 mild; 10-14 moderate; 15-21 severe): 0 Source: Developed by Drs. Anuel Rivas, Jolie Rosas, Harjinder Gomez and colleagues, with an educational hansa from [employer]. Physical exam (Primary Care) Vital Signs: Last Vital Signs Temp 97.8 F 05/25/25 13:29 Pulse 64 05/25/25 13:29 Resp 16 05/25/25 13:29 BP 158/70 H 05/25/25 13:42 Pulse Ox 97 05/25/25 13:29 Oxygen Delivery Method Room Air 05/25/25 13:29 BMI result Body Mass Index 38.5 Tobacco/Smoking Status: Tobacco use Status Tobacco use date assessed 05/25/25 05/25/25 13:39 Patient Tobacco Use Status Never used Tobacco 05/25/25 13:39 PHQ-9: PHQ-9 Score PHQ-9: Total score 0 05/25/25 13:42 Thrive Assessment: Date of Thrive Assessment Date Thrive assessed 05/25/25 05/25/25 13:39 Const General: cooperative and healthy appearing Nutritional Appearance: well nourished Orientation/consciousness: patient oriented x3 Limitations: no limitations HENMT Head: Yes normal to inspection Eyes General: appearance normal, both eyes and all related structures Neck Neck: Yes normal visual inspection Chest Chest palpation & inspection: normal palpation of entire chest wall Resp Effort & Inspection: normal respiratory effort Neuro General: patient oriented x3 Extrem Other: Limited motion right upper extremity. Coding Level of Care Code New Pt Level 4 (63489) Complex EM visit Add On G2211 Diagnoses Hypertension I10 Assessment & Plan Assessment & Plan (1) Hypertension: Code(s): I10 - Essential (primary) hypertension Category: Medical Plan: Blood work reviewed. Continue current medications. When she gets a date for the surgery, a preop evaluation will be done. Medications: Refilled furosemide (Lasix) 20 mg PO QAM 90 tabs 1RF
[2025-05-25 13:29] VITALS: BP 172/72; PULSE 64; RESP 16; TEMP 36.6; O2SAT 97; BMI 38.5
[2025-05-25 13:42] VITALS: BP 158/70
--- OUTSIDE RECORDS SUMMARY | 2025-05-25 14:16 | XMS_ITS | Encounter Summary ---
Author Organization [facility] [place] [address] Care Team Providers Care Editor & Co Founder Name Role Phone Bi Morfin MD Primary Care Provider [phone] Encounter Details Date Type Department Care Team (Late st Contact Info) Description 02/19/2025 Lab Requisition [facility] Lab [address] [facility] [place] [address] Bella Maravilla MD [address] [place] [address] Essential (primary) hypertension Social History Tobacco Use [...] hypertension documented in this encounter Care Teams Editor & Co Founder Relationship Specialty Start Date End Date Bi Morfin MD [address] [place] [address] PCP - General Internal Medicine 01/18/25 documented as of this encounter
--- OUTSIDE RECORDS SUMMARY | 2025-05-25 14:16 | XMS_ITS | Patient Health Record ---
Author Organization [facility] Address [address] [place] [address] Care Team Providers Care Butadiene Compressor Operator Name Role Phone Caleb SHAH, Yohana Primary Care Provider Anuel Paredes Unavailable [phone] Zoë SHAH, Madelin Unavailable Unavailable Reason For [...] End Date MEDICARE OF [place] [address] [facility] [place] [address] [id number] MARY DEMPSEY Self - patient is the insured Medical (General) History Medical History History ICD Code hypothyroidism hypertension Surgical History Surgery Date(Month/Year) hysterectomy bilateral hip replacement in 2002 tonsillectomy
--- OUTSIDE RECORDS SUMMARY | 2025-05-25 14:17 | XMS_ITS | Encounter Summary ---
Author Organization [facility] [place] [address] Care Team Providers Care Rivet Hammer Machine Operator Name Role Phone Bi Morfin MD Primary Care Provider [phone] Encounter Details Date Type Department Care Team (Late st Contact Info) Description 02/17/2025 Lab Requisition [facility] - [facility] Lab [address] [facility] [place] [address] Bella Maravilla MD [address] [place] [address] Hypokalemia Social History Tobacco Use Types Packs/Day [...] LAB CHEMISTRY METHOD 02/18/2025 11:11 AM EDT [facility] Blood Venous blood specimen / Unknown Venipuncture / Unknown 02/18/2025 5:24 AM EDT 02/18/2025 10:30 AM EDT us Bella Maravilla MD LAB BLOOD ORDERABLES Final Resul t [facility] [address] [place] [address], [place] [phone] * Basic metabolic panel (02/18/2025 5:24 AM EDT) Sodium 140 133 - 145 mmol/L LAB CHEMISTRY METHOD 02/18/2025 11:11 AM [facility] Potassium 3.7 3.5 - 5.5 mmol/L LAB CHEMISTRY METHOD 02/18/2025 11:11 AM [facility] Chloride 103 96 - 110 mmol/L LAB CHEMISTRY METHOD 02/18/2025 11:11 AM [facility] CO2 32 21 - 32 mmol/L LAB CHEMISTRY METHOD 02/18/2025 11:11 AM [facility] Anion Gap 5 3 - 11 LAB CHEMISTRY METHOD 02/18/2025 11:11 AM [facility] Glucose 86 70 - 100 mg/dL LAB CHEMISTRY METHOD 02/18/2025 11:11 AM [facility] BUN 19 5 - 25 mg/dL LAB CHEMISTRY METHOD 02/18/2025 11:11 AM [facility] Creatinine 0.64 0.50 - 1.10 mg/dL LAB CHEMISTRY METHOD 02/18/2025 11:11 AM [facility] LAB eGFR 92 >=60 mL/min/1. 73m2 LAB CHEMISTRY METHOD 02/18/2025 11:11 AM [facility] LAB Comment:Calculation based on the Chronic Kidney Disease Epidemiology Collaboration (CKD-EPI) equation refit without adjustment for race. BUN/Creatinine Ratio 29.7 LAB CHEMISTRY METHOD 02/18/2025 11:11 AM EDT [facility] Calcium 10.1 8.5 - 10.5 mg/dL LAB CHEMISTRY METHOD 02/18/2025 11:11 AM EDT [facility] Blood Venous blood specimen / Unknown Venipuncture / Unknown 02/18/2025 5:24 AM EDT 02/18/2025 10:30 AM EDT us Bella Maravilla MD LAB BLOOD ORDERABLES Final Resul t [facility] [address] [place] [address], documented in this encounter Visit Diagnoses Diagnosis Hypokalemia Hypopotassemia documented in this encounter Care Teams Rivet Hammer Machine Operator Relationship Specialty Start Date End Date Bi Morfin MD [address] [place] [address] PCP - General Internal Medicine 01/18/25 documented as of this encounter
--- OUTSIDE RECORDS SUMMARY | 2025-05-25 14:17 | XMS_ITS | Clinical Summary ---
Author Organization [facility] Address [address] [place] [address] Phone Care Team Providers Care Machine Sign Writer Name Role Phone Bi Morfin MD Primary Care Provider [phone] Allergies No known active allergies Medications oxyCODONE [...] Daily Amount: 20 mg 10 capsule Active Social History Tobacco Use Types Packs/Day Years [...] Procedure Name Priority Date/Time Associated Diagnosis Comments BASIC METABOLIC PANEL Routine 02/18/2025 5:24 AM EDT Hypokalemia from Last 3 Months or Most Recently Relevant to Health Maintenance Results * Basic metabolic panel (02/18/2025 5:24 AM EDT) Sodium 140 133 - 145 mmol/L LAB CHEMISTRY METHOD 02/18/2025 11:11 AM [facility] Potassium 3.7 3.5 - 5.5 mmol/L LAB CHEMISTRY METHOD 02/18/2025 11:11 AM [facility] Chloride 103 96 - 110 mmol/L LAB CHEMISTRY METHOD 02/18/2025 11:11 AM [facility] CO2 32 21 - 32 mmol/L LAB CHEMISTRY METHOD 02/18/2025 11:11 AM [facility] Anion Gap 5 3 - 11 LAB CHEMISTRY METHOD 02/18/2025 11:11 AM [facility] Glucose 86 70 - 100 mg/dL LAB CHEMISTRY METHOD 02/18/2025 11:11 AM EDT [facility] BUN 19 5 - 25 mg/dL LAB CHEMISTRY METHOD 02/18/2025 11:11 AM EDT [facility] Creatinine 0.64 0.50 - 1.10 mg/dL LAB CHEMISTRY METHOD 02/18/2025 11:11 AM T [facility] LAB eGFR 92 >=60 mL/min/1. 73m2 LAB CHEMISTRY METHOD 02/18/2025 11:11 AM EDT [facility] Comment:Calculation based on the Chronic Kidney Disease Epidemiology Collaboration (CKD-EPI) equation refit without adjustment for race. BUN/Creatinine Ratio 29.7 LAB CHEMISTRY METHOD 02/18/2025 11:11 AM [facility] Calcium 10.1 8.5 - 10.5 mg/dL LAB CHEMISTRY METHOD 02/18/2025 11:11 AM T [facility] Blood Venous blood specimen / Unknown Venipuncture / Unknown 02/18/2025 5:24 AM EDT 02/18/2025 10:30 AM EDT us Bella Maravilla MD LAB BLOOD ORDERABLES Final Resul t [facility] [address] [place] [address], from Last 3 Months or Most Recently Relevant to Health Maintenance Insurance MEDICARE [employer] Member Subscriber Plan / Payer (Ef fective 2024-Present) Name:KE,MARY R Relation to Subscriber:Spouse Name:CHAMP YADAV Date of :1899 Address: [address] [place] [phone] Payer ID:[id number] Group ID:[id number] Type:Not on file Address: [address] [place] [address] [facility] Advance Directives Documents on File Type Date Recorded Patient Resident Services Director Expl anation Advance Directives and Livin g Will 02/10/2025 2:14 PM PROXY Care Teams Machine Sign Writer Relationship Specialty Start Date End Date Bi Morfin MD [address] [place] [address] [place] Parada PCP - General Internal Medicine 01/18/25
--- OUTSIDE RECORDS SUMMARY | 2025-05-25 14:17 | XMS_ITS | Encounter Summary ---
Author Organization [facility] [place] [address] Care Team Providers Care District Resource Officer Name Role Phone Bi Morfin MD Primary Care Provider [phone] Encounter Details Date Type Department Care Team (Late st Contact Info) Description 02/12/[address] [facility] - Main Lab [address] [place] [address] Bella Maravilla MD [address] [place] [address] Essential (primary) hypertension Social History Tobacco Use [...] Complete blood count (02/15/2025 5:19 AM EDT) [facility] Signature WBC 5.3 4.8 - 10.8 K/[facility] LAB HEMETOLOGY METHOD 02/15/2025 10:[address] [facility] RBC 3.70(L) 3.80 - 4.80 M/mcL LAB HEMETOLOGY METHOD 02/15/2025 10:40 AM [facility] LAB Hemoglobin 11.4(L) 11.5 - 16.0 g/dL LAB HEMETOLOGY METHOD 02/15/2025 10:40 AM [facility] LAB Hematocrit 34.9(L) 35.0 - 47.0 % LAB HEMETOLOGY METHOD 02/15/2025 10:40 AM [facility] LAB MCV 94.1 79.0 - 98.0 FL LAB HEMETOLOGY METHOD 02/15/2025 10:40 AM [facility] LAB MCH 30.7 27.0 - 32.0 pcg LAB HEMETOLOGY METHOD 02/15/2025 10:40 AM [facility] LAB MCHC 32.7 32.0 - 37.0 g/dL LAB HEMETOLOGY METHOD 02/15/2025 10:40 AM [facility] LAB RDW 14.3 11.0 - 15.0 % LAB HEMETOLOGY METHOD 02/15/2025 10:40 AM [facility] LAB Platelets 208 130 - 400 K/mcL LAB HEMETOLOGY METHOD 02/15/2025 10:40 AM [facility] LAB MPV 9.4 7.0 - 11.0 FL LAB HEMETOLOGY METHOD 02/15/2025 10:40 AM [facility] LAB NRBC 0.0 <1.0 % LAB HEMETOLOGY METHOD 02/15/2025 10:40 AM [facility] LAB NRBC Absolute 0.00 <0.10 K/mcL LAB HEMETOLOGY METHOD 02/15/2025 10:40 AM [facility] LAB Blood Venous blood specimen / Unknown Venipuncture / Unknown 02/15/2025 5:19 AM EDT 02/15/2025 10:08 AM EDT us Bella Maravilla MD LAB BLOOD ORDERABLES Final Resul t [facility] LAB [address] [place] [address], [place] [phone] * (ABNORMAL) Basic metabolic panel (02/15/2025 5:19 AM EDT) Sodium 146(H) 133 - 145 mmol/L LAB CHEMISTRY METHOD 02/15/2025 11:48 AM [facility] LAB Potassium 3.3(L) 3.5 - 5.5 mmol/L LAB CHEMISTRY METHOD 02/15/2025 11:48 AM [facility] LAB Chloride 106 96 - 110 mmol/L LAB CHEMISTRY METHOD 02/15/2025 11:48 AM [facility] LAB CO2 29 21 - 32 mmol/L LAB CHEMISTRY METHOD 02/15/2025 11:48 AM [facility] LAB Anion Gap 11 3 - 11 LAB CHEMISTRY METHOD 02/15/2025 11:48 AM [facility] LAB Glucose 83 70 - 100 mg/dL LAB CHEMISTRY METHOD 02/15/2025 11:48 AM [facility] LAB BUN 14 5 - 25 mg/dL LAB CHEMISTRY METHOD 02/15/2025 11:48 AM [facility] LAB Creatinine 0.66 0.50 - 1.10 mg/dL LAB CHEMISTRY METHOD 02/15/2025 11:48 AM [facility] LAB eGFR 91 >=60 mL/min/1. 73m2 LAB CHEMISTRY METHOD 02/15/2025 11:48 AM [facility] LAB Comment:Calculation based on the Chronic Kidney Disease Epidemiology Collaboration (CKD-EPI) equation refit without adjustment for race. BUN/Creatinine Ratio 21.2 LAB CHEMISTRY METHOD 02/15/2025 11:48 AM EDT [facility] Calcium 9.7 8.5 - 10.5 mg/dL LAB CHEMISTRY METHOD 02/15/2025 11:[address] [facility] LAB Blood Venous blood specimen / Unknown Venipuncture / Unknown 02/15/2025 5:19 AM EDT 02/15/2025 10:08 AM EDT us Bella Maravilla MD LAB BLOOD ORDERABLES Final Resul t [facility] ([facility] [address] [place] [address], documented in this encounter Visit Diagnoses Diagnosis Essential (primary) hypertension Unspecified essential hypertension documented in this encounter Care Teams District Resource Officer Relationship Specialty Start Date End Date Bi Morfin MD [address] [place] [address] PCP - General Internal Medicine 01/18/25 documented as of this encounter
--- OUTSIDE RECORDS SUMMARY | 2025-05-25 14:17 | XMS_ITS | Encounter Summary ---
Author Organization [facility] Address [address] [place] [address] Care Team Providers Care Wiring Mechanic Name Role Phone Bi Morfin MD Primary Care Provider [phone] Encounter Details Date Type Department Care Team (Latest Contact Info) Description 02/08/[address] [facility] - Main Lab [address] [facility] [place] [address] Tanya Trotter PA [address] [place] [address] Essential (primary) hypertension; Hypothyroidism, unspecified; Vitamin D deficiency, unspecified; Type 2 diabetes mellitus without complications (CMS/HCC V24, CMS/[facility] V28) Social History Tobacco Use Types [...] unspecified Type 2 diabetes mellitus without complications ([facility] V24, [facility] V28) MAGNESIUM Routine 02/08/2025 5:10 AM EDT Essential (primary) hypertension Hypothyroidism, unspecified Vitamin D deficiency, unspecified Type 2 diabetes mellitus without complications ([facility] V24, [facility] V28) HEMOGLOBIN A1C Routine 02/08/2025 5:10 AM EDT Essential (primary) hypertension Hypothyroidism, unspecified Vitamin D deficiency, unspecified Type 2 diabetes mellitus without complications ([facility] V24, [facility] V28) FOLATE Routine 02/08/2025 5:10 AM EDT Essential (primary) hypertension Hypothyroidism, unspecified Vitamin D deficiency, unspecified Type 2 diabetes mellitus without complications ([facility] V24, [facility] V28) COMPREHENSIVE METABOLIC PANEL Routine 02/08/2025 5:10 AM EDT Essential (primary) hypertension Hypothyroidism, unspecified Vitamin D deficiency, unspecified Type 2 diabetes mellitus without complications ([facility] V24, [facility] V28) documented in this encounter Results * Hemoglobin A1c (02/08/2025 5:10 AM EDT) Hemoglobin A1C 4.8 <6.5 % LAB CHEMISTRY METHOD 02/08/2025 2:24 PM EDT [facility] LAB Mean Bld Glu Estim. 91 mg/dL LAB CHEMISTRY METHOD 02/08/2025 2:24 PM EDT [facility] LAB Blood Venous blood specimen / Unknown Venipuncture / Unknown 02/08/2025 5:10 AM EDT 02/08/2025 10:14 AM EDT us Tanya RAMIREZ LAB BLOOD ORDERABLES Final Resu lt [facility] LAB [address] [place] [address], [place] [phone] * Vitamin D 25 hydroxy (02/08/2025 5:10 AM EDT) Pathologist [facility] Vit D, 25-Hydroxy 35.5 30.0 - 80.0 ng/mL LAB CHEMISTRY METHOD 02/08/2025 3:10 PM EDT [facility] LAB Blood Venous blood specimen / Unknown Venipuncture / Unknown 02/08/2025 5:10 AM EDT 02/08/2025 10:14 AM EDT us Tanya RAMIREZ LAB BLOOD ORDERABLES Final Resu lt Performing Organization Address [facility]/ZIP Co de Phone Number [facility] [address] [place] [address], * Magnesium (02/08/2025 5:10 AM EDT) [facility] Magnesium 2.1 1.9 - 2.6 mg/dL LAB CHEMISTRY METHOD 02/08/2025 2:07 PM EDT [facility] Blood Venous blood specimen / Unknown Venipuncture / Unknown 02/08/2025 5:10 AM EDT 02/08/2025 10:14 AM EDT us Tanya RAMIREZ LAB BLOOD ORDERABLES Final Resu lt [facility] [address] [place] [address], * Folate (02/08/2025 5:10 AM EDT) [facility] Folate 16.1 2.8 - 17.0 ng/ml LAB CHEMISTRY METHOD 02/08/2025 2:24 PM EDT [facility] Blood Venous blood specimen / Unknown Venipuncture / Unknown 02/08/2025 5:10 AM EDT 02/08/2025 10:14 AM EDT us Tanya RAMIREZ LAB BLOOD ORDERABLES Final Resu lt Performing Organization Address [facility]/ZIP Co de Phone Number [facility] [address] [place] [address], [place] [phone] * Thyroid stimulating hormone (02/08/2025 5:10 AM EDT) [facility] TSH 4.00 0.40 - 4.00 mcIU/mL LAB CHEMISTRY METHOD 02/08/2025 3:10 PM EDT [facility] Blood Venous blood specimen / Unknown Venipuncture / Unknown 02/08/2025 5:10 AM EDT 02/08/2025 10:14 AM EDT us Tanya RAMIREZ LAB BLOOD ORDERABLES Final Resu lt Performing Organization Address [facility] Co de Phone Number [facility] [address] [place] [address], [place] [phone] * (ABNORMAL) Comprehensive metabolic panel (02/08/2025 5:10 AM EDT) [facility] Sodium 138 133 - 145 mmol/L LAB CHEMISTRY METHOD 02/08/2025 2:07 PM EDT [facility] Potassium 3.7 3.5 - 5.5 mmol/L LAB CHEMISTRY METHOD 02/08/2025 2:07 PM EDT [facility] Chloride 100 96 - 110 mmol/L LAB CHEMISTRY METHOD 02/08/2025 2:07 PM EDT [facility] CO2 31 21 - 32 mmol/L LAB CHEMISTRY METHOD 02/08/2025 2:07 PM T [facility] Anion Gap 7 3 - 11 LAB CHEMISTRY METHOD 02/08/2025 2:07 PM EDT [facility] Glucose 81 70 - 100 mg/dL LAB CHEMISTRY METHOD 02/08/2025 2:07 PM [facility] BUN 17 5 - 25 mg/dL LAB CHEMISTRY METHOD 02/08/2025 2:07 PM [facility] LAB Creatinine 0.70 0.50 - 1.10 mg/dL LAB CHEMISTRY METHOD 02/08/2025 2:07 PM [facility] LAB eGFR 90 >=60 mL/min/1. 73m2 LAB CHEMISTRY METHOD 02/08/2025 2:07 PM [facility] LAB Comment:Calculation based on the Chronic Kidney Disease Epidemiology Collaboration (CKD-EPI) equation refit without adjustment for race. BUN/Creatinine Ratio 24.3 LAB CHEMISTRY METHOD 02/08/2025 2:07 PM [facility] LAB Calcium 9.9 8.5 - 10.5 mg/dL LAB CHEMISTRY METHOD 02/08/2025 2:07 PM [facility] AST (SGOT) 13 10 - 42 unit/L LAB CHEMISTRY METHOD 02/08/2025 2:07 PM [facility] ALT (SGPT) 17 10 - 60 unit/L LAB CHEMISTRY METHOD 02/08/2025 2:07 PM [facility] Alkaline Phosphatase 105 42 - 121 unit/L LAB CHEMISTRY METHOD 02/08/2025 2:07 PM [facility] Total Protein 5.8(L) 6.0 - 8.0 g/dL LAB CHEMISTRY METHOD 02/08/2025 2:07 PM [facility] Albumin 3.6 3.2 - 5.0 g/dL LAB CHEMISTRY METHOD 02/08/2025 2:07 PM [facility] Total Bilirubin 1.7(H) 0.0 - 1.4 mg/dL LAB CHEMISTRY METHOD 02/08/2025 2:07 PM [facility] Blood Venous blood specimen / Unknown Venipuncture / Unknown 02/08/2025 5:10 AM EDT 02/08/2025 10:14 AM EDT us Tanya RAMIREZ LAB BLOOD ORDERABLES Final Resu lt [facility] [address] [place] [address], [place] [phone] * Complete blood count (02/08/2025 5:10 AM EDT) WBC 5.6 4.8 - 10.8 K/mcL LAB HEMETOLOGY METHOD 02/08/2025 11:38 AM EDT [facility] RBC 3.80 3.80 - 4.80 M/mcL LAB HEMETOLOGY METHOD 02/08/2025 11:38 AM EDT [facility] Hemoglobin 11.8 11.5 - 16.0 g/dL LAB HEMETOLOGY METHOD 02/08/2025 11:38 AM EDT [facility] Hematocrit 36.2 35.0 - 47.0 % LAB HEMETOLOGY METHOD 02/08/2025 11:38 AM EDT [facility] LAB MCV 95.0 79.0 - 98.0 FL LAB HEMETOLOGY METHOD 02/08/2025 11:38 AM EDT [facility] MCH 31.0 27.0 - 32.0 pcg LAB HEMETOLOGY METHOD 02/08/2025 11:38 AM EDT [facility] MCHC 32.6 32.0 - 37.0 g/dL LAB HEMETOLOGY METHOD 02/08/2025 11:38 AM EDT [facility] RDW 14.6 11.0 - 15.0 % LAB HEMETOLOGY METHOD 02/08/2025 11:38 AM T [facility] Platelets 233 130 - 400 K/mcL LAB HEMETOLOGY METHOD 02/08/2025 11:38 AM EDT [facility] LAB MPV 9.3 7.0 - 11.0 FL LAB HEMETOLOGY METHOD 02/08/2025 11:38 AM EDT [facility] NRBC 0.0 <1.0 % LAB HEMETOLOGY METHOD 02/08/2025 11:38 AM EDT [facility] LAB NRBC Absolute 0.00 <0.10 K/mcL LAB HEMETOLOGY METHOD 02/08/2025 11:38 AM EDT [facility] Blood Venous blood specimen / Unknown Venipuncture / Unknown 02/08/2025 5:10 AM EDT 02/08/2025 10:14 AM EDT us Tanya RAMIREZ LAB BLOOD ORDERABLES Final Resu lt [facility] [address] [place] [address], documented in this encounter Visit Diagnoses Diagnosis Essential (primary) hypertension Unspecified essential hypertension Hypothyroidism, unspecified Vitamin D deficiency, unspecified Type 2 diabetes mellitus without complications (CMS/HCC V24, CMS/HCC V28) documented in this encounter Care Teams Wiring Mechanic Relationship Specialty Start Date End Date Bi Morfin MD [address] [place] [address] PCP - General Internal Medicine 01/18/25 documented as of this encounter
== END 2025-05-25 13:56 | disposition home or self-care (01) ==
LOC: HO.HMCSH 13:05
PROVIDERS: PCP Internal Medicine; Visit Provider Internal Medicine
DX: I10 Essential (primary) hypertension (principal)

== ENCOUNTER 2025-06-10 15:14 | Outpatient (AMB) | payer BC, MEDICARE, OTHER, SELFPAY ==
--- OUTSIDE RECORDS SUMMARY | 2025-06-07 18:48 | XMS_ITS | Encounter Summary ---
Author Organization [facility] [place] [address] Care Team Providers Care Menu Planner Name Role Phone Physician, Pcp Unknown Primary Care Provider Esmer vailable Reason for Visit * Reason Comments Facial Droop Encounter Details Date Type Department Care Team (Late st Contact Info) Description 06/07/2025 6:48 PM EDT - 06/07/2025 7:38 PM EDT Emergency [facility] Emergency [address] [place] [id number] Christopher Mcintosh MD [address] [address] Benitez palsy (Primary Dx) Discharge Disposition: Home or Self Care Social History Tobacco Use Types Packs/Day Years Used Date Smoking Tobacco: Never Assessed Comments Unknown Sex and Gender Information Value Date Recorded Sex Assigned at Not on file Legal Sex Female 11:38 AM EDT Gender Identity Not on file Sexual Orientation Not on file documented as of this encounter Last Filed Vital Signs Vital Sign Reading Time Taken Comments Blood Pressure 195/82 06/07/2025 6:39 PM EDT Pulse 75 06/07/2025 6:39 PM EDT Temperature 36.7 C (98.1 F) 06/07/2025 6:39 PM EDT Respiratory Rate 20 06/07/2025 6:39 PM EDT Oxygen Saturation 96% 06/07/2025 6:39 PM EDT Inhaled Oxygen Concentration - - Weight 101 kg (223 lb) 06/07/2025 6:39 PM EDT Height 162.6 cm (5' 4 ) 06/07/2025 6:39 PM EDT Body Mass Index 38.28 06/07/2025 6:39 PM EDT documented in this encounter Functional Status * Calculated C-SSRS Risk Score (Lifetime/Recent) Answer Date of Assessment Author No Risk Indicated 06/07/2025 6:45 PM EDT Debbie Mansfield RN * [place]ferro Suicide Severity Rating Scale (Screener/Recent Self-Report) Question Answer Date of Assessment Author 1. Wish to be (Past 1 Month) No 025 6:45 PM EDT Debbie Mansfield RN 2. Non-Specific Active Suici adrian Thoughts (Past 1 Month) No 06/07/2025 6:45 PM EDT Chip Mansfield RN 6. Suicidal Behavior (Lifetime) No 5 6:45 PM EDT Debbie Mansfield RN documented as of this encounter Discharge Instructions * Discharge Instructions* Christopher Mcintosh MD - 06/07/2025 7:27 PM EDT Please use artificial tears and lacrilube at night to keep your eye hydration and avoid corneal abrasion. * Attachments The following attachments cannot be sent through Care Everywhere. * Benitez's Palsy (American) documented in this encounter Medications at Time of Discharge valACYclovir (VALTREX) 1 gram tablet Take 1 tablet (1,000 mg total) by mouth 3 (three) times a day for 7 days. 21 each 06/07/2025 atenoloL (TENORMIN) 50 mg tablet Take 1 tablet (50 mg total) by mouth 1 (one) time each day. celecoxib (CeleBREX) 200 mg capsule Take 1 capsule (200 mg total) by mouth 1 (one) time each day with breakfast. fluticasone propionate (FLOVENT DISKUS) 50 mcg/actuation diskus inhaler Inhale 2 puffs by mouth 1 (one) time each day. Rinse mouth with water after use to reduce aftertaste and incidence of candidiasis. Do not swallow. furosemide (LASIX) 20 mg tablet Take 1 tablet (20 mg total) by mouth 1 (one) time each day. levothyroxine (SYNTHROID, LEVOTHROID) 100 mcg tablet Take 1 tablet (100 mcg total) by mouth 1 (one) time each day before breakfast. loratadine (CLARITIN) 10 mg tablet Take 1 tablet (10 mg total) by mouth 1 (one) time each day. metFORMIN (GLUCOPHAGE) 500 mg tablet Take 1 tablet (500 mg total) by mouth 3 (three) times a day. oxyCODONE (OXY-IR) 5 mg immediate release capsule Take 1 capsule (5 mg total) by mouth every 6 (six) hours if needed for severe pain for up to 10 doses. Max Daily Amount: 20 mg 10 capsule 02/05/2025 oxyCODONE (ROXICODONE) 5 mg immediate release tablet Take 1 tablet (5 mg total) by mouth every 6 (six) hours if needed for severe pain for up to 12 doses. Partial fill on request Max Daily Amount: 20 mg 12 tablet 01/18/2025 predniSONE 10 mg tablets,dose pack Take 6 tablets (60 mg total) by mouth 1 (one) time each day for 3 days, THEN 4 tablets (40 mg total) 1 (one) time each day for 3 days, THEN 2 tablets (20 mg total) 1 (one) time each day for 3 days, THEN 1 tablet (10 mg total) 1 (one) time each day for 3 days. 39 tablet 06/07/2025 5 documented as of this encounter Ordered Prescriptions Prescription Sig Dispense Quantity Refills Last Filled Start Date End Date valACYclovir (VALTREX) 1 gram tablet Take 1 tablet (1,000 mg total) by mouth 3 (three) times a day for 7 days. 21 each 06/07/2025 5 predniSONE 10 mg tablets,dose pack Take 6 tablets (60 mg total) by mouth 1 (one) time each day for 3 days, THEN 4 tablets (40 mg total) 1 (one) time each day for 3 days, THEN 2 tablets (20 mg total) 1 (one) time each day for 3 days, THEN 1 tablet (10 mg total) 1 (one) time each day for 3 days. 39 tablet 06/07/2025 5 valACYclovir (VALTREX) 1 gram tablet Take 1 tablet (1,000 mg total) by mouth 3 (three) times a day for 7 days. 20 tablet 06/07/2025 10/13/202 5 documented in this encounter Discharge Disposition Disposition Code Departure Means Destination Comment s Home or Self Care documented in this encounter Progress Notes * Debbie Mansfield RN - 06/07/2025 6:34 PM EDT Patient comes to ED due to left sided facial droop that began at 3:30 on Saturday afternoon. Pt stsshe was at [employer] eating pizza, bit the side of her mouth while eating pizza and noted her face appeared drooping. Patient went to [facility] [employer] and they told her to come to ED [facility]. Pt having trouble closing her left eye and it is watering a lot. Pt has obvious droop in triage. Pt ambulatory in triage. Pt c/o pressure in her head and ear pain x 3 days. Denies any rashes or bug bites. documented in this encounter Plan of Treatment Not on file documented as of this encounter Visit Diagnoses Diagnosis Benitez palsy- Primary Benitez's palsy documented in this encounter Discontinued Medications Medication Sig Discontinue Reason Start Date End Da te valACYclovir (VALTREX) 1 gram tablet Take 1 tablet (1,000 mg total) by mouth 3 (three) times a day for 7 days. 06/07/2025 06/07/2025 documented as of this encounter Care Teams Menu Planner Relationship Specialty Start Date End Date Physician, Pcp Unknown PCP - General 06/07/25 documented as of this encounter
--- NOTE | 2025-06-10 15:14 | MHC.PC.OV ---
Vital Signs 06/10/25 15:15 Height 5 ft 4.69 in Weight 229 lb BMI 38.5 BP 163/73 H Blood Pressure Location Rt brachial Position Sitting Respiration 18 Pulse 67 Pulse Source Pulse Oximeter Temp 97.7 F Temp Source Temporal Artery Scan Pulse Oximetry (%) 96 Oxygen Delivery Method Room Air Intake Visit Reasons: Nurse visit, f/u visit Insurance Defense Attorney Required: No Accompanied by: Spouse Allergies general anesthesia Allergy (Unknown, Uncoded 06/10/25 17:30) vomiting Medication List - Last Reconciled 06/10/25 by Sandie Lisa PA-C atenolol 100 mg PO DAILY celecoxib 200 mg PO DAILY fluticasone propionate 50 mcg/actuation 2 sprays intranasal DAILY furosemide (Lasix) 20 mg PO QAM levothyroxine 100 mcg PO DAILY lisinopril 10 mg PO DAILY loratadine (Claritin) 10 mg PO DAILY metformin mg PO TID prednisone mg PO valacyclovir 1,000 mg PO TID Tobacco use date assessed: 06/10/25 Fall risk assessment: 1 Fall in past year Last assessed Fall Risk: 06/10/25 Dental Screening Dental Screen Date: 06/10/25 Did you have a dental visit in the last 12 months?: No Did you have a dental problem in the last 6 months where you did not have access to dental care?: No HPI Nurse visit HPI Details The patient is a 75-year-old female presenting with a follow-up visit after being diagnosed with Benitez's Palsy and to address elevated blood sugar levels. The patient was diagnosed with Benitez's Palsy after initially visiting urgent care with concerns of a possible stroke. She was subsequently treated with prednisone and Valtrex, which led to an improvement in her symptoms. The patient has a history of hypertension, currently managed with atenolol and furosemide. Her blood pressure readings have been elevated, with a recent measurement of 163 mmHg systolic. She previously experienced a cough with Diovan, leading to its discontinuation. The patient has been managing diabetes mellitus with metformin, but recent blood sugar levels have been elevated, reaching 281 mg/dL. Her A1c was recorded at 5.2%, indicating good long-term control. The patient was noted to be slightly dehydrated with a BUN of 17 mg/dL. Additionally, her liver enzymes were elevated, and her urine showed some bacteria, though not indicative of a urinary tract infection. Social History - Family: The patient has a stepson who is a physician night assistant. [facility] Medical History (Updated 06/10/25 @ 17:33 by Sandie Lisa PA-C) Class 2 obesity with body mass index (BMI) of 38.0 to 38.9 in adult UTI (urinary tract infection) Elevated liver enzymes Dehydration Hyperlipidemia Type 2 diabetes mellitus with hemoglobin A1c goal of less than 7.0% Benitez's palsy History of mammogram (~11/02/24) Hypothyroidism Hypertension Surgical History History of total hip arthroplasty Family History Mother Acute arthritis Father BP (high blood pressure) Social History Housing: House Alcohol intake: current Alcohol intake frequency: does not drink Patient Tobacco Use Status: Never used Tobacco service: No Current occupational status: retired Cognitive needs: Yes (cane) Hearing needs: No Vision needs: Yes (rx glasses) Questionnaire PHQ-9 Over the last 2 weeks, how often have you been bothered by any of the following problems? 1. Little interest or pleasure in doing things: not at all 2. Feeling down, depressed, or hopeless: not at all 3. Trouble falling or staying asleep, or sleeping too much: not at all 4. Feeling tired or having little energy: not at all 5. Poor appetite or overeating: not at all 6. Feeling bad about yourself - or that you are a failure or have let yourself or your family down: not at all 7. Trouble concentrating on things, such as reading the newspaper or watching television: not at all 8. Moving or speaking so slowly that other people could have noticed. Or the opposite - being so fidgety or restless that you have been moving around a lot more than usual: not at all 9. Thoughts that you would be better off or of hurting yourself in some way: not at all Total score: 0 Depression Screening Interpretation: Negative Depression Screening Done: Yes 83017 - PHQ-9 Billing: Yes Source: Developed by Drs. Anuel Rivas, Jolie RosasHarjinder and colleagues, with an educational hansa from [employer]. Thrive Questionnaire Date Thrive assessed: 06/10/25 I am a: Patient What is your living situation today?: I have a steady place to live Within the past 12 months, did the food you bought not last and you didn't have the money to get more?: Never true Within the past 12 months, did you worry whether your food would run out before you got money to buy more?: Never true Do you have trouble paying for medicines?: No Do you have trouble getting transportation to medical appointments?: No Do you have trouble paying your heating and electricity bill?: No Do you have trouble taking care of your child, family member or friend?: No Do you have trouble with day-to-day activities such as bathing, preparing meals, shopping, managing finances, etc.?: No Are you currently unemployed and looking for a job?: No Are you interested in more education?: No Please select the resources that you would like help with: None THRIVE Score: 0 AUDIT C Alcohol Use Questionnaire (AUDIT-C) 1. How often do you have a drink containing alcohol?: Never 3. How often do you have six or more drinks on one occasion?: Never Total Score: 0 Score Reviewed/Action Taken: No UJLIANA-7 AMB Questionnaire JULIANA-7 Date JULIANA - 7 assessed: 06/10/25 Feeling nervous, anxious, or on edge: 0 = Not at all Not being able to stop or control worryin = Not at all Worrying too much about different things: 0 = Not at all Trouble relaxin = Not at all Being so restless that it is hard to sit still: 0 = Not at all Becoming easily annoyed or irritable: 0 = Not at all Feeling afraid as if something awful might happen: 0 = Not at all Total JULIANA-7 score (0-4 normal; 5-9 mild; 10-14 moderate; 15-21 severe): 0 Source: Developed by Drs. Anuel Rivas, Jolie Rosas, Harjinder Gomez and colleagues, with an educational hansa from [employer]. JULIANA-7 Assessment Billing JULIANA-7 Assessment Tool: JULIANA-7 Assessment 09904 Review of Systems Const Details: - Neurological: Reports Benitez's Palsy, denies dizziness. - Cardiovascular: Denies chest pain. - Genitourinary: Denies dysuria or urinary frequency. All systems reviewed & are unremarkable except as noted in HPI and below Physical exam (Primary Care) Vital Signs: Last Vital Signs Temp 97.7 F 06/10/25 15:15 Pulse 67 06/10/25 15:15 Pulse Ox 96 06/10/25 15:15 Oxygen Delivery Method Room Air 06/10/25 15:15 Care Plan Goal for BP management: <140/90 patient to continue 100 mg of atenolol, 20 mg of furosemide will add lisinopril 10 mg and she will return in 1 month for blood pressure check BMI result Body Mass Index 38.5 BMI Assessment/Plan discussion: High BMI High, discussed plan: lifestyle, weight reduction, dietary, physical activity, alcohol moderation and other Tobacco/Smoking Status: Tobacco use Status Tobacco use date assessed 06/10/25 06/10/25 15:17 Patient Tobacco Use Status Never used Tobacco 06/10/25 15:17 PHQ-9: PHQ-9 Score PHQ-9: Total score 0 06/10/25 16:05 Depression Screening Interpretation: Negative Thrive Assessment: Date of Thrive Assessment Date Thrive assessed 06/10/25 06/10/25 15:17 Const Other: Appearance: Alert. Oriented X3. No acute distress. Head: Normal external exam. Normocephalic. Atraumatic. Eyes: Pupils are equal, round, and reactive to light. Extraocular movements intact. Conjunctiva and sclera normal. Eyelids normal. Ears: External auditory canal normal. Tympanic membranes normal. Throat: Pharynx normal. Uvula midline. Moist mucous membranes. Neck: Normal inspection. Neck supple. Full range of motion. No adenopathy. Thyroid Normal. No meningeal signs. No neck mass noted. Cardiovascular: Normal heart rate and rhythm. Heart sound normal. No murmurs noted. Pulses normal throughout. Respiratory: No respiratory distress. Painless inspiration. Breath sounds normal. No wheezes/rales/rhonchi noted. Chest nontender. No accessory muscle usage noted or decreased air movement noted. Abdomen: Soft and nontender. Bowel sounds normal in all 4 quadrants. No distention noted. No organomegaly noted. No visible injury noted. Back: No costovertebral angle tenderness. Full range of motion noted. Skin: Skin warm and dry. Normal skin color. Normal skin turgor. No rashes/lesions/lacerations noted. Extremities: No lower extremity edema. Extremities exhibit normal range of motion. Extremities nontender. Neuro: Oriented X 3. No motor deficit. No sensory deficit. Reflexes normal. Office Procedures Flu Questionnaire Does the patient have a severe egg allergy?: No Does the patient have severe life threatening allergies?: No Does the patient have a fever or illness today?: No Has the patient ever had Guillain-Tiger Syndrome?: No Has the patient ever had any past reaction to a flu shot?: No Results AMB Hemoglobin A1c AMB Hemoglobin A1c 5.2 % Last Edit by Jeanie Siegel CMA on 06/10/25 16:06 Immunizations Fluarix [id number] (PF) 45 mcg (15 mcg x 3)/0.5 mL IM syringe Performing Provider: Sandie Lisa PA-C [facility] Documented (not given) by: Jeanie Siegel CMA on 06/10/25 15:31 Reason Not Given: Received Previously Results Reviewed Results Reviewed: Laboratory Last Values Hgb A1c (Clinic) 5.2 % (4.0-6.0) 06/10/25 15:29 - Labs: CBC normal, BUN 17 mg/dL, creatinine 0.62 mg/dL, GFR 60 mL/min, random glucose 121 mg/dL, total bilirubin elevated at 151, triglycerides 163 mg/dL, LDL 116 mg/dL, HDL 35 mg/dL, A1c 5.2%. Coding Level of Care Code Est Pt Level 4 (65420) Complex EM visit Add On G2211 Diagnoses Benitez's palsy G51.0 Hypertension I10 Type 2 diabetes mellitus with hemoglobin A1c goal of less than 7.0% E11.9 Hyperlipidemia E78.5 Dehydration E86.0 Elevated liver enzymes R74.8 UTI (urinary tract infection) N39.0 Class 2 obesity with body mass index (BMI) of 38.0 to 38.9 in adult E66.812; Z68.38 Additional Codes PHQ-9 - 54328 - PHQ-9 Billing: Yes ([id number]) JULIANA-7 Assessment Billing - JULIANA-7 Assessment Tool: JULIANA-7 Assessment 45458 ([id number]) Time Spent (min) 60 Assessment & Plan Assessment & Plan (1) Benitez's palsy: Code(s): G51.0 - Benitez's palsy Category: Medical Plan: The patient was diagnosed with Benitez's Palsy and treated with prednisone and Valtrex, resulting in symptom improvement. Continued monitoring of symptoms is advised, with follow-up to assess recovery progress. (2) Hypertension: Code(s): I10 - Essential (primary) hypertension Category: Medical Plan: The patient's hypertension is currently managed with atenolol and furosemide, but recent readings indicate elevated blood pressure. Lisinopril 10 mg daily was added to the regimen, with instructions to monitor blood pressure regularly and follow up in one month. (3) Type 2 diabetes mellitus with hemoglobin A1c goal of less than 7.0%: Code(s): E11.9 - Type 2 diabetes mellitus without complications Category: Medical Plan: The patient is on metformin for diabetes management, with recent elevated blood sugar levels noted. A1c is at 5.2%, indicating good control; however, continued monitoring is necessary, especially while on prednisone. (4) Hyperlipidemia: Code(s): E78.5 - Hyperlipidemia, unspecified Category: Medical Plan: The patient has elevated triglycerides and LDL cholesterol, with low HDL cholesterol. Dietary modifications were recommended to improve lipid profile. (5) Dehydration: Code(s): E86.0 - Dehydration Category: Medical Plan: The patient was noted to be slightly dehydrated with a BUN of 17 mg/dL. Adequate hydration was advised to address this issue. (6) Elevated liver enzymes: Code(s): R74.8 - Abnormal levels of other serum enzymes Category: Medical Plan: The patient exhibited elevated liver enzymes, specifically total bilirubin at 151. Further evaluation may be necessary if symptoms persist or worsen. (7) UTI (urinary tract infection): Code(s): N39.0 - Urinary tract infection, site not specified Category: Medical Plan: The urine analysis showed bacteria, but it was not indicative of a urinary tract infection. Monitoring for any urinary symptoms was advised. (8) Class 2 obesity with body mass index (BMI) of 38.0 to 38.9 in adult: Code(s): E66.812 - Obesity, class 2; Z68.38 - Body mass index [BMI] 38.0-38.9, adult Category: Medical Plan: Patient to improve diet and exercise regimen. Will discuss Plan Plan Patient was informed and verbally consented to the use of an ambient scribe for clinic note documentation during this visit. 1. Benitez's Palsy The patient was diagnosed with Bentiez's Palsy and treated with prednisone and Valtrex, resulting in symptom improvement. Continued monitoring of symptoms is advised, with follow-up to assess recovery progress. 2. Hypertension The patient's hypertension is currently managed with atenolol and furosemide, but recent readings indicate elevated blood pressure. Lisinopril 10 mg daily was added to the regimen, with instructions to monitor blood pressure regularly and follow up in one month. 3. Diabetes Mellitus The patient is on metformin for diabetes management, with recent elevated blood sugar levels noted. A1c is at 5.2%, indicating good control; however, continued monitoring is necessary, especially while on prednisone. 4. Hyperlipidemia The patient has elevated triglycerides and LDL cholesterol, with low HDL cholesterol. Dietary modifications were recommended to improve lipid profile. 5. Dehydration The patient was noted to be slightly dehydrated with a BUN of 17 mg/dL. Adequate hydration was advised to address this issue. 6. Elevated Liver Enzymes The patient exhibited elevated liver enzymes, specifically total bilirubin at 151. Further evaluation may be necessary if symptoms persist or worsen. 7. Urinary Tract Infection (Suspected) The urine analysis showed bacteria, but it was not indicative of a urinary tract infection. Monitoring for any urinary symptoms was advised. During the visit, I discussed the patient's current management of Benitez's Palsy, hypertension, diabetes, and hyperlipidemia. We reviewed the addition of lisinopril to her hypertension regimen and the importance of regular blood pressure monitoring. I advised dietary changes to address hyperlipidemia and emphasized the need for adequate hydration. Orders: Orders Influenza [id number] Immunization Today Z23 - Encounter for immunization AMB Hemoglobin A1c Today Z13.9 - Encounter for screening, unspecified Medications: New lisinopril 10 mg PO DAILY 30 tabs 0RF lisinopril 10 mg PO DAILY 30 tabs 0RF Patient Instructions: - Continue taking prescribed medications as directed. - Monitor blood pressure four to five times a week and record the readings. - Follow a diet low in sweets and fatty foods to manage cholesterol levels. - Ensure adequate hydration daily. - Return for a follow-up appointment in one month.
[2025-06-10 15:15] VITALS: BP 163/73; PULSE 67; RESP 18; TEMP 36.5; O2SAT 96; BMI 38.5
--- OUTSIDE RECORDS SUMMARY | 2025-06-10 19:04 | XMS_ITS | Encounter Summary ---
Author Organization [facility] [place] [address] Care Team Providers Care Steam Hoist Operator Name Role Phone Physician, Pcp Unknown Primary Care Provider Esmer vailable Encounter Details Date Type Department Care Team (Late st Contact Info) Description 02/17/2025 Lab Requisition [facility] - Main Lab [address] [facility] [place] [address] Bella Maravilla MD [address] [place] [address] Hypokalemia Social History Tobacco Use Types Packs/Day [...] LAB CHEMISTRY METHOD 02/18/2025 11:11 AM EDT [facility] ([facility]) [facility] Blood Venous blood specimen / Unknown Venipuncture / Unknown 02/18/2025 5:24 AM EDT 02/18/2025 10:30 AM EDT us Bella Maravilla MD LAB BLOOD ORDERABLES Final Resul t [facility] [address] [place] [address], [place] [phone] * Basic metabolic panel (02/18/2025 5:24 AM EDT) Sodium 140 133 - 145 mmol/L LAB CHEMISTRY METHOD 02/18/2025 11:11 AM [facility] Potassium 3.7 3.5 - 5.5 mmol/L LAB CHEMISTRY METHOD 02/18/2025 11:11 AM [facility] Chloride 103 96 - 110 mmol/L LAB CHEMISTRY METHOD 02/18/2025 11:11 AM [facility] CO2 32 21 - 32 mmol/L LAB CHEMISTRY METHOD 02/18/2025 11:11 AM [facility] LAB Anion Gap 5 3 - 11 LAB CHEMISTRY METHOD 02/18/2025 11:11 AM [facility] Glucose 86 70 - 100 mg/dL LAB CHEMISTRY METHOD 02/18/2025 11:11 AM [facility] BUN 19 5 - 25 mg/dL LAB CHEMISTRY METHOD 02/18/2025 11:11 AM [facility] Creatinine 0.64 0.50 - 1.10 mg/dL LAB CHEMISTRY METHOD 02/18/2025 11:11 AM [facility] LAB eGFR 92 >=60 mL/min/1. 73m2 LAB CHEMISTRY METHOD 02/18/2025 11:11 AM [facility] LAB Comment:Calculation based on the Chronic Kidney Disease Epidemiology Collaboration (CKD-EPI) equation refit without adjustment for race. BUN/Creatinine Ratio 29.7 LAB CHEMISTRY METHOD 02/18/2025 11:11 AM [facility] Calcium 10.1 8.5 - 10.5 mg/dL LAB CHEMISTRY METHOD 02/18/2025 11:11 AM EDT [facility] Blood Venous blood specimen / Unknown Venipuncture / Unknown 02/18/2025 5:24 AM EDT 02/18/2025 10:30 AM EDT us Bella Maravilla MD LAB BLOOD ORDERABLES Final Resul t [facility] [address] [place] [address], [place] [phone] documented in this encounter Visit Diagnoses Diagnosis Hypokalemia Hypopotassemia documented in this encounter Care Teams Steam Hoist Operator Relationship Specialty Start Date End Date Physician, Pcp Unknown PCP - General 06/07/25 documented as of this encounter
--- OUTSIDE RECORDS SUMMARY | 2025-06-10 19:04 | XMS_ITS | Encounter Summary ---
Author Organization [facility] Address [address] [place] [address] Care Team Providers Care Business Development Consultant Name Role Phone Physician, Pcp Unknown Primary Care Provider Esmer vailable Encounter Details Date Type Department Care Team (Late st Contact Info) Description 02/12/2025 Lab Requisition [facility] - Main Lab [address] [facility] [place] [address] Bella Maravilla MD [address] [place], [place] [id number] Essential (primary) hypertension Social History Tobacco Use [...] Complete blood count (02/15/2025 5:19 AM EDT) [facility] Signature WBC 5.3 4.8 - 10.8 K/[facility] LAB HEMETOLOGY METHOD 02/15/2025 10:40 AM EDT [facility] ([facility] RBC 3.70(L) 3.80 - 4.80 M/mcL LAB HEMETOLOGY METHOD 02/15/2025 10:40 AM [facility] Hemoglobin 11.4(L) 11.5 - 16.0 g/dL LAB HEMETOLOGY METHOD 02/15/2025 10:40 AM [facility] Hematocrit 34.9(L) 35.0 - 47.0 % LAB HEMETOLOGY METHOD 02/15/2025 10:40 AM [facility] MCV 94.1 79.0 - 98.0 FL LAB HEMETOLOGY METHOD 02/15/2025 10:40 AM [facility] MCH 30.7 27.0 - 32.0 pcg LAB HEMETOLOGY METHOD 02/15/2025 10:40 AM [facility] MCHC 32.7 32.0 - 37.0 g/dL LAB HEMETOLOGY METHOD 02/15/2025 10:40 AM [facility] RDW 14.3 11.0 - 15.0 % LAB HEMETOLOGY METHOD 02/15/2025 10:40 AM [facility] Platelets 208 130 - 400 K/mcL LAB HEMETOLOGY METHOD 02/15/2025 10:40 AM [facility] MPV 9.4 7.0 - 11.0 FL LAB HEMETOLOGY METHOD 02/15/2025 10:40 AM [facility] NRBC 0.0 <1.0 % LAB HEMETOLOGY METHOD 02/15/2025 10:40 AM [facility] NRBC Absolute 0.00 <0.10 K/mcL LAB HEMETOLOGY METHOD 02/15/2025 10:40 AM [facility] Blood Venous blood specimen / Unknown Venipuncture / Unknown 02/15/2025 5:19 AM EDT 02/15/2025 10:08 AM EDT us Bella Maravilla MD LAB BLOOD ORDERABLES Final Resul t [facility] [address] [place] [address], * (ABNORMAL) Basic metabolic panel (02/15/2025 5:19 AM EDT) Sodium 146(H) 133 - 145 mmol/L LAB CHEMISTRY METHOD 02/15/2025 11:48 AM [facility] Potassium 3.3(L) 3.5 - 5.5 mmol/L LAB CHEMISTRY METHOD 02/15/2025 11:48 AM [facility] Chloride 106 96 - 110 mmol/L LAB CHEMISTRY METHOD 02/15/2025 11:48 AM [facility] CO2 29 21 - 32 mmol/L LAB CHEMISTRY METHOD 02/15/2025 11:48 AM [facility] Anion Gap 11 3 - 11 LAB CHEMISTRY METHOD 02/15/2025 11:48 AM [facility] Glucose 83 70 - 100 mg/dL LAB CHEMISTRY METHOD 02/15/2025 11:48 AM [facility] BUN 14 5 - 25 mg/dL LAB CHEMISTRY METHOD 02/15/2025 11:48 AM [facility] Creatinine 0.66 0.50 - 1.10 mg/dL LAB CHEMISTRY METHOD 02/15/2025 11:48 AM [facility] eGFR 91 >=60 mL/min/1. 73m2 LAB CHEMISTRY METHOD 02/15/2025 11:48 AM [facility] Comment:Calculation based on the Chronic Kidney Disease Epidemiology Collaboration (CKD-EPI) equation refit without adjustment for race. BUN/Creatinine Ratio 21.2 LAB CHEMISTRY METHOD 02/15/2025 11:48 AM [facility] Calcium 9.7 8.5 - 10.5 mg/dL LAB CHEMISTRY METHOD 02/15/2025 11:48 AM EDT [facility] Blood Venous blood specimen / Unknown Venipuncture / Unknown 02/15/2025 5:19 AM EDT 02/15/2025 10:08 AM EDT us Bella Maravilla MD LAB BLOOD ORDERABLES Final Resul t [facility] [address] [place] [address], [place] [phone] documented in this encounter Visit Diagnoses Diagnosis Essential (primary) hypertension Unspecified essential hypertension documented in this encounter Care Teams Business Development Consultant Relationship Specialty Start Date End Date Physician, Pcp Unknown PCP - General 06/07/25 documented as of this encounter
--- OUTSIDE RECORDS SUMMARY | 2025-06-10 19:04 | XMS_ITS | Encounter Summary ---
Author Organization [facility] Address [address] [place] [address] Care Team Providers Care Charge Authorizer Name Role Phone Physician, Pcp Unknown Primary Care Provider Esmer vailable Encounter Details Date Type Department Care Team (Late st Contact Info) Description 02/19/2025 Lab Requisition [facility] - Main Lab [address] [facility] [place] [address] Bella Maravilla MD [address] [place], [place] [id number] Essential (primary) hypertension Social History Tobacco Use [...] hypertension documented in this encounter Care Teams Charge Authorizer Relationship Specialty Start Date End Date Physician, Pcp Unknown PCP - General 06/07/25 documented as of this encounter
--- OUTSIDE RECORDS SUMMARY | 2025-06-10 19:04 | XMS_ITS | Clinical Summary ---
Author Organization [facility] Address [address] [place] [address] Phone Care Team Providers Care Element Winding Machine Tender Name Role Phone Physician, Pcp Unknown Primary Care Provider Esmer vailable Allergies No known active allergies Medications oxyCODONE (ROXICODONE) 5 mg immediate release tablet Take 1 tablet (5 mg total) by mouth every 6 (six) hours if needed for severe pain for up to 12 doses. Partial fill on request Max Daily Amount: 20 mg 12 tablet 01/19/20 25 Active metFORMIN (GLUCOPHAGE) 500 mg tablet Take [...] Max Daily Amount: 20 mg 10 capsule 02/06/20 Active predniSONE 10 mg tablets,dose pack Take 6 [...] each day for 3 days. 39 tablet 06/07/20 Active valACYclovir (VALTREX) 1 gram tablet Take 1 tablet (1,000 mg total) by mouth 3 (three) times a day for 7 days. 21 each 06/07/20 25 Active valACYclovir (VALTREX) 1 gram tablet Take 1 tablet (1,000 mg total) by mouth 3 (three) times a day for 7 days. 20 tablet 06/07/20 025 Discontinued Encounters Date Type Department Care Team Description 06/07/2025 6:48 PM EDT - 06/07/2025 7:38 PM EDT Emergency [facility] Emergency [address] [place] [address] Christopher Mcintosh MD Benitez palsy (Primary Dx) Discharge Disposition: Home or Self Care from Last 3 Months Surgical History Surgery Date Site/Laterality Comments TONSILLECTOMY HYSTERECTOMY TOTAL HIP ARTHROPLASTY Bilateral Medical History Medical History Date Comments Hypertension Diabetes mellitus (CMS/HCC V24, CMS/HCC V28) Disease of thyroid gland Arthritis Edema Social History Tobacco Use Types Packs/Day Years Used Date Smoking Tobacco: Never Assessed Comments Unknown Sex and Gender Information Value Date Recorded Sex Assigned at Not on file Legal Sex Female 11:38 AM EDT Gender Identity Not on file Sexual Orientation Not on file Obstetrics History Last Filed Vital Signs Vital Sign Reading [...] Mass Index 38.28 06/07/2025 6:39 PM EDT Plan of Treatment Health Maintenance Due Date Last Done Comments DTaP,Tdap,and Td Vaccines (1 - Tdap) 1969 Pneumococcal Vaccine: 50+ Years (1 of 2 - PCV) 1967 Zoster Vaccines (1 of 2) 1998 Falls Risk Assessment 06/09/2024 Hepatitis C Screening 06/09/2024 Medicare Annual Wellness Visit 06/09/2024 Osteoporosis Screening (Bone Density Screening) 06/09/2024 Social Influencers of Health Screening 06/09/2024 Depression Screening 08/26/2024 RSV Immunization Adult Patients Completed 06/17/2023 COVID-19 Vaccine Completed 06/06/2025, 11/2023, 03/09/2024, Additional history exists Influenza Vaccine Completed 06/06/2025, , 04/28/2023, Additional history exists HIB Vaccines Aged Out No longer eligi [...] on patient's age to complete this topic Insurance MEDICARE [facility] Member Subscriber Plan / Payer (Ef fective 2024-Present) Name:MARY SALGUERO R Relation to Subscriber:Spouse Name:CHAMP YADAV Date of :1899 Address: [address] [place] [id number] Payer ID:[id number] Group ID:[id number] Type:Not on file Address: [address] [place] [address] [facility] Advance Directives Documents on File Type Date Recorded Patient Construction Equipment Operator Expl anation Advance Directives and Livin g Will 02/10/2025 2:14 PM PROXY Care Teams Element Winding Machine Tender Relationship Specialty Start Date End Date Physician, Pcp Unknown PCP - General 06/07/25
--- OUTSIDE RECORDS SUMMARY | 2025-06-10 19:04 | XMS_ITS | Encounter Summary ---
Author Organization [facility] Address [address] [place] [address] Care Team Providers Care Escrow Officer Name Role Phone Physician, Pcp Unknown Primary Care Provider Esmer vailable Encounter Details Date Type Department Care Team (Latest Contact Info) Description 02/08/2025 Lab Requisition [facility] Lab [address] [place] [address] Tanya Trotter PA [address] [facility] [address] [place] [address] Essential (primary) hypertension; Hypothyroidism, unspecified; Vitamin D deficiency, unspecified; Type 2 diabetes mellitus without complications (CMS/HCC V24, CMS/HCC V28) Social History Tobacco Use Types Packs/Day [...] unspecified Type 2 diabetes mellitus without complications ([facility] V24, [facility] V28) MAGNESIUM Routine 02/08/2025 5:10 AM EDT Essential (primary) hypertension Hypothyroidism, unspecified Vitamin D deficiency, unspecified Type 2 diabetes mellitus without complications ([facility] V24, [facility] V28) HEMOGLOBIN A1C Routine 02/08/2025 5:10 AM EDT Essential (primary) hypertension Hypothyroidism, unspecified Vitamin D deficiency, unspecified Type 2 diabetes mellitus without complications ([facility] V24, [facility] V28) FOLATE Routine 02/08/2025 5:10 AM EDT Essential (primary) hypertension Hypothyroidism, unspecified Vitamin D deficiency, unspecified Type 2 diabetes mellitus without complications ([facility] V24, [facility] V28) COMPREHENSIVE METABOLIC PANEL Routine 02/08/2025 5:10 AM EDT Essential (primary) hypertension Hypothyroidism, unspecified Vitamin D deficiency, unspecified Type 2 diabetes mellitus without complications ([facility] V24, [facility] V28) documented in this encounter Results * Hemoglobin A1c (02/08/2025 5:10 AM EDT) Hemoglobin A1C 4.8 <6.5 % LAB CHEMISTRY METHOD 02/08/2025 2:24 PM EDT [facility] Mean Bld Glu Estim. 91 mg/dL LAB CHEMISTRY METHOD 02/08/2025 2:24 PM EDT [facility] Blood Venous blood specimen / Unknown Venipuncture / Unknown 02/08/2025 5:10 AM EDT 02/08/2025 10:14 AM EDT us Tanya RAMIREZ LAB BLOOD ORDERABLES Final Resu lt [facility] [address] [place] [address], [place] [phone] * Vitamin D 25 hydroxy (02/08/2025 5:10 AM EDT) [facility] Vit D, 25-Hydroxy 35.5 30.0 - 80.0 ng/mL LAB CHEMISTRY METHOD 02/08/2025 3:10 PM EDT [facility] Blood Venous blood specimen / Unknown Venipuncture / Unknown 02/08/2025 5:10 AM EDT 02/08/2025 10:14 AM EDT us Tanya RAMIREZ LAB BLOOD ORDERABLES Final Resu lt [facility] [address] [place] [address], [place] [phone] * Magnesium (02/08/2025 5:10 AM EDT) [facility] Magnesium 2.1 1.9 - 2.6 mg/dL LAB CHEMISTRY METHOD 02/08/2025 2:07 PM EDT [facility] Blood Venous blood specimen / Unknown Venipuncture / Unknown 02/08/2025 5:10 AM EDT 02/08/2025 10:14 AM EDT us Tanya RAMIREZ LAB BLOOD ORDERABLES Final Resu lt [facility] [address] [place] [address], [place] [phone] * Folate (02/08/2025 5:10 AM EDT) [facility] Folate 16.1 2.8 - 17.0 ng/ml LAB CHEMISTRY METHOD 02/08/2025 2:24 PM EDT [facility] Blood Venous blood specimen / Unknown Venipuncture / Unknown 02/08/2025 5:10 AM EDT 02/08/2025 10:14 AM EDT Tanya RAMIREZ LAB BLOOD ORDERABLES Final Resu lt Performing Organization Address City/[facility]/ZIP Co de Phone Number [facility] [address] [place] [address], [place] [phone] * Thyroid stimulating hormone (02/08/2025 5:10 AM EDT) [facility] TSH 4.00 0.40 - 4.00 mcIU/mL LAB CHEMISTRY METHOD 02/08/2025 3:10 PM EDT [facility] Blood Venous blood specimen / Unknown Venipuncture / Unknown 02/08/2025 5:10 AM EDT 02/08/2025 10:14 AM EDT Tanya RAMIREZ LAB BLOOD ORDERABLES Final Resu lt Performing Organization Address [facility]/ZIP Co de Phone Number [facility] [address] [place] [address], [place] [phone] * (ABNORMAL) Comprehensive metabolic panel (02/08/2025 5:10 AM EDT) [facility] Sodium 138 133 - 145 mmol/L LAB CHEMISTRY METHOD 02/08/2025 2:07 PM EDT [facility] Potassium 3.7 3.5 - 5.5 mmol/L LAB CHEMISTRY METHOD 02/08/2025 2:07 PM EDT [facility] Chloride 100 96 - 110 mmol/L LAB CHEMISTRY METHOD 02/08[facility]2025 [facility] CO2 31 21 - 32 mmol/L LAB CHEMISTRY METHOD 02/08/2025 2:07 PM T [facility] Anion Gap 7 3 - 11 LAB CHEMISTRY METHOD 02/08/2025 2:07 PM T [facility] Glucose 81 70 - 100 mg/dL LAB CHEMISTRY METHOD 02/08/2025 2:07 PM [facility] BUN 17 5 - 25 mg/dL LAB CHEMISTRY METHOD 02/08/2025 2:07 PM [facility] Creatinine 0.70 0.50 - 1.10 mg/dL LAB CHEMISTRY METHOD 02/08/2025 2:07 PM [facility] eGFR 90 >=60 mL/min/1. 73m2 LAB CHEMISTRY METHOD 02/08/2025 2:07 PM [facility] Comment:Calculation based on the Chronic Kidney Disease Epidemiology Collaboration (CKD-EPI) equation refit without adjustment for race. BUN/Creatinine Ratio 24.3 LAB CHEMISTRY METHOD 02/08/2025 2:07 PM [facility] Calcium 9.9 8.5 - 10.5 mg/dL LAB CHEMISTRY METHOD 02/08/2025 2:07 PM [facility] AST (SGOT) 13 10 - 42 unit/L LAB CHEMISTRY METHOD 02/08/2025 2:07 PM [facility] ALT (SGPT) 17 10 - 60 unit/L LAB CHEMISTRY METHOD 02/08/2025 2:07 PM [facility] Alkaline Phosphatase 105 42 - 121 unit/L LAB CHEMISTRY METHOD 02/08/2025 2:07 PM [facility] Total Protein 5.8(L) 6.0 - 8.0 g/dL LAB CHEMISTRY METHOD 02/08/2025 2:07 PM [facility] Albumin 3.6 3.2 - 5.0 g/dL LAB CHEMISTRY METHOD 02/08/2025 2:07 PM [facility] Total Bilirubin 1.7(H) 0.0 - 1.4 mg/dL LAB CHEMISTRY METHOD 02/08/2025 2:07 PM [facility] Blood Venous blood specimen / Unknown Venipuncture / Unknown 02/08/2025 5:10 AM EDT 02/08/2025 10:14 AM EDT us Tanya RAMIREZ LAB BLOOD ORDERABLES Final Resu lt [facility] [address] [place] [address], * Complete blood count (02/08/2025 5:10 AM EDT) WBC 5.6 4.8 - 10.8 K/mcL LAB HEMETOLOGY METHOD 02/08/2025 11:38 AM EDT [facility] RBC 3.80 3.80 - 4.80 M/mcL LAB HEMETOLOGY METHOD 02/08/2025 11:38 AM EDT [facility] Hemoglobin 11.8 11.5 - 16.0 g/dL LAB HEMETOLOGY METHOD 02/08/2025 11:38 AM EDT [facility] Hematocrit 36.2 35.0 - 47.0 % LAB HEMETOLOGY METHOD 02/08/2025 11:38 AM EDT [facility] MCV 95.0 79.0 - 98.0 FL LAB HEMETOLOGY METHOD 02/08/2025 11:38 AM EDT [facility] MCH 31.0 27.0 - 32.0 pcg LAB HEMETOLOGY METHOD 02/08/2025 11:38 AM EDT [facility] MCHC 32.6 32.0 - 37.0 g/dL LAB HEMETOLOGY METHOD 02/08/2025 11:38 AM EDT [facility] RDW 14.6 11.0 - 15.0 % LAB HEMETOLOGY METHOD 02/08/2025 11:[facility] Platelets 233 130 - 400 K/mcL LAB HEMETOLOGY METHOD 02/08/2025 11:38 AM EDT [facility] MPV 9.3 7.0 - 11.0 FL LAB HEMETOLOGY METHOD 02/08/2025 11:38 AM EDT [facility] NRBC 0.0 <1.0 % LAB HEMETOLOGY METHOD 02/08/2025 11:38 AM EDT [facility] NRBC Absolute 0.00 <0.10 K/mcL LAB HEMETOLOGY METHOD 02/08/2025 11:38 AM EDT [facility] Blood Venous blood specimen / Unknown Venipuncture / Unknown 02/08/2025 5:10 AM EDT 02/08/2025 10:14 AM EDT us Tanya RAMIREZ LAB BLOOD ORDERABLES Final Resu lt [facility] [address] [place] [address], documented in this encounter Visit Diagnoses Diagnosis Essential (primary) hypertension Unspecified essential hypertension Hypothyroidism, unspecified Vitamin D deficiency, unspecified Type 2 diabetes mellitus without complications (CMS/HCC V24, CMS/HCC V28) documented in this encounter Care Teams Escrow Officer Relationship Specialty Start Date End Date Physician, Pcp Unknown PCP - General 06/07/25 documented as of this encounter
--- OUTSIDE RECORDS SUMMARY | 2025-06-10 19:04 | XMS_ITS | Patient Health Record ---
Author Organization [facility] Address [address] [place] [address] Care Team Providers Care Design Cell Engineer Name Role Phone Caleb SHAH, Yohana Primary Care Provider Anuel Paredes Unavailable [phone] Zoë SHAH, Madelin Unavailable Unavailable Reason For [...] End Date MEDICARE OF [place] [address] [facility] [place] [address] [phone] [id number] MARY DEMPSEY Self - patient is the insured Medical (General) History Medical History History ICD Code hypothyroidism hypertension Surgical History Surgery Date(Month/Year) hysterectomy bilateral hip replacement in 2002 tonsillectomy
== END 2025-06-10 16:03 | disposition home or self-care (01) ==
LOC: HO.HMCSH 15:14
PROVIDERS: PCP Internal Medicine; Visit Provider Physician Assistant Medical
DX: G51.0 Bell's palsy (principal); I10 Essential (primary) hypertension; E11.9 Type 2 diabetes mellitus without complications; E78.5 Hyperlipidemia, unspecified; E86.0 Dehydration; R74.8 Abnormal levels of other serum enzymes; N39.0 Urinary tract infection, site not specified; E66.812 Obesity, class 2; Z68.38 Body mass index [BMI] 38.0-38.9, adult; Z23 Encounter for immunization; Z13.9 Encounter for screening, unspecified

== ENCOUNTER → 2025-06-10 15:14 | Outpatient (BNVA) | payer BC, MEDICARE, OTHER, SELFPAY | PROVIDERS: PCP Internal Medicine; Visit Provider Physician Assistant Medical | DX: G51.0 Bell's palsy (principal); I10 Essential (primary) hypertension; E11.9 Type 2 diabetes mellitus without complications; E86.0 Dehydration; R74.8 Abnormal levels of other serum enzymes; N39.0 Urinary tract infection, site not specified; E66.812 Obesity, class 2; Z68.38 Body mass index [BMI] 38.0-38.9, adult; Z23 Encounter for immunization; Z79.84 Long term (current) use of oral hypoglycemic drugs; Z28.89 Immunization not carried out for other reason | CPT/HCPCS: 83036; 90471; 96127 ==

== ENCOUNTER 2025-07-12 12:58 | Outpatient (AMB) | payer BC, MEDICARE, OTHER, SELFPAY ==
--- NOTE | 2025-07-12 13:00 | A.OFFPC_ITS ---
Vital Signs 07/12/25 13:04 07/12/25 13:54 Height 5 ft 4.69 in Weight 237 lb 0.2 oz BMI 39.8 BP 170/71 H 138/78 Blood Pressure Location Lt brachial Rt brachial Position Sitting Pulse 69 Pulse Source Pulse Oximeter Temp 97.2 F Pulse Oximetry (%) 96 Intake Visit Reasons: Pre-op shoulder surgery Intake Note: no issues except sleeping at night Allergies general anesthesia Allergy (Unknown, Uncoded 07/12/25 13:21) vomiting Medication List - Last Reconciled 07/12/25 by Sandie Lisa PA-C atenolol 100 mg PO DAILY celecoxib 200 mg PO DAILY fluticasone propionate 50 mcg/actuation 2 sprays intranasal DAILY furosemide (Lasix) 20 mg PO QAM levothyroxine 100 mcg PO DAILY lisinopril 10 mg PO DAILY loratadine (Claritin) 10 mg PO DAILY metformin mg PO TID Tobacco use date assessed: 06/10/25 Dental Screening Dental Screen Date: 07/12/25 Did you have a dental visit in the last 12 months?: No Did you have a dental problem in the last 6 months where you did not have access to dental care?: No Was dental information given to patient?: Patient has dentist HPI HPI Comments History of Present Illness Details History of Present Illness The patient is a 75-year-old female presenting for pre-operative clearance. She is scheduled for a right reverse total shoulder arthroplasty on 08/04/[address] Guardado for primary osteoarthritis of the right shoulder. The post-operative plan includes physical therapy 2-3 times per week for 4-6 weeks, with weaning from her sling at week 3., passive range of motion week 2-3, active range of motion week 3-4, active range of motion week 4-5. Along with strengthening exercises. This is to start 2 weeks after surgery. The patient's medical history is significant for type 2 diabetes, for which she takes metformin 500 mg, two tablets in the morning and one in the evening. Her last HbA1c was 5.2%. She has a history of hypertension and recently ran out of her trial supply of lisinopril 10 mg, noting her blood pressure was better while taking it. Her home blood pressure readings have mostly been in the 120s/70s, though she notes it can increase with anxiety. She also takes atenolol 100 mg daily for blood pressure. Other chronic conditions include hypothyroidism, managed with levothyroxine 100 mcg daily, and chronic pain, for which she takes celecoxib 200 mg daily. She is also on furosemide 20 mg every morning and uses a fluticasone nasal spray. The patient cannot take cholesterol medications due to a history of severe myalgias that affected her ability to walk. She has a history of post-anesthesia nausea but states that she now receives medication to prevent this. Her BMI is 39, and she reports being at a weight loss plateau. Social History - Tobacco Use: The patient is a non-smok er. - Diet: She does not drink coffee. - Functional Status: Her partner express ed concern that she may not rest adequately post-surgery and might overexert herself with telephone recorder like vacuuming. Results - Labs: Last HbA1c was 5.2%. - Last chemistry panel was done in [facility]. [facility] Medical History (Updated 07/12/25 @ 14:00 by Sandie Lisa PA-C) Follow-up exam Congestion of nasal sinus Primary osteoarthritis, right shoulder Pre-op evaluation Class 2 obesity with body mass index (BMI) of 38.0 to 38.9 in adult UTI (urinary tract infection) Elevated liver enzymes Dehydration Hyperlipidemia Type 2 diabetes mellitus with hemoglobin A1c goal of less than 7.0% Benitez's palsy History of mammogram (~11/02/24) Hypothyroidism Hypertension Surgical History History of total hip arthroplasty Family History Mother Acute arthritis Father BP (high blood pressure) Social History Housing: House Alcohol intake: current Alcohol intake frequency: does not drink Patient Tobacco Use Status: Never used Tobacco service: No Current occupational status: retired Cognitive needs: Yes (cane) Hearing needs: No Vision needs: Yes (rx glasses) Questionnaire PHQ-9 Over the last 2 weeks, how often have you been bothered by any of the following problems? 1. Little interest or pleasure in doing things: not at all 2. Feeling down, depressed, or hopeless: not at all 3. Trouble falling or staying asleep, or sleeping too much: not at all 4. Feeling tired or having little energy: not at all 5. Poor appetite or overeating: not at all 6. Feeling bad about yourself - or that you are a failure or have let yourself or your family down: not at all 7. Trouble concentrating on things, such as reading the newspaper or watching television: not at all 8. Moving or speaking so slowly that other people could have noticed. Or the opposite - being so fidgety or restless that you have been moving around a lot more than usual: not at all 9. Thoughts that you would be better off or of hurting yourself in some way: not at all Total score: 0 Depression Screening Interpretation: Negative Depression Screening Done: Yes 90573 - PHQ-9 Billing: Yes Source: Developed by Drs. Anuel Rivas, Jolie Rosas, Harjinder Gomez and colleagues, with an educational hansa from [employer]. Thrive Questionnaire Date Thrive assessed: 06/10/25 I am a: Patient What is your living situation today?: I have a steady place to live Within the past 12 months, did the food you bought not last and you didn't have the money to get more?: Never true Within the past 12 months, did you worry whether your food would run out before you got money to buy more?: Never true Do you have trouble paying for medicines?: No Do you have trouble getting transportation to medical appointments?: No Do you have trouble paying your heating and electricity bill?: No Do you have trouble taking care of your child, family member or friend?: No Do you have trouble with day-to-day activities such as bathing, preparing meals, shopping, managing finances, etc.?: No Are you currently unemployed and looking for a job?: No Are you interested in more education?: No Please select the resources that you would like help with: None THRIVE Score: 0 AUDIT C Alcohol Use Questionnaire (AUDIT-C) 1. How often do you have a drink containing alcohol?: Never 3. How often do you have six or more drinks on one occasion?: Never Total Score: 0 Score Reviewed/Action Taken: No JULIANA-7 AMB Questionnaire JULIANA-7 Date JULIANA - 7 assessed: 06/10/25 Feeling nervous, anxious, or on edge: 0 = Not at all Not being able to stop or control worryin = Not at all Worrying too much about different things: 0 = Not at all Trouble relaxin = Not at all Being so restless that it is hard to sit still: 0 = Not at all Becoming easily annoyed or irritable: 0 = Not at all Feeling afraid as if something awful might happen: 0 = Not at all Total JULIANA-7 score (0-4 normal; 5-9 mild; 10-14 moderate; 15-21 severe): 0 Source: Developed by Drs. Anuel Rivas, Jolie Rosas, Harjinder Gomez and colleagues, with an educational hansa from [employer]. JULIANA-7 Assessment Billing JULIANA-7 Assessment Tool: JULIANA-7 Assessment 94170 Review of Systems Narrative Review of Systems - Cardiovascular: Denies chest pain. - Respiratory: Denies shortness of breath. - ENT: Reports nocturnal congestion, which improves during the day, suggestive of post-nasal drip. - Neurological: Denies dizziness. - General: Reports being at a weight loss plateau. - Allergic/Immunologic: Reports a history of nausea with anesthesia. Const All systems reviewed & are unremarkable except as noted in HPI and below Physical exam (Primary Care) Vital Signs: Last Vital Signs Temp 97.2 F 07/12/25 13:04 Pulse 69 07/12/25 13:04 BP 170/71 H 07/12/25 13:04 Pulse Ox 96 07/12/25 13:04 Care Plan Goal for BP management: <140/90 at Goal BMI result Body Mass Index 39.8 BMI Assessment/Plan discussion: High BMI High, discussed plan: lifestyle, weight reduction, dietary, physical activity, alcohol moderation and other Tobacco/Smoking Status: Tobacco use Status Tobacco use date assessed 06/10/25 07/12/25 13:02 Patient Tobacco Use Status Never used Tobacco 07/12/25 13:02 PHQ-9: PHQ-9 Score PHQ-9: Total score 0 07/12/25 13:18 Depression Screening Interpretation: Negative Thrive Assessment: Date of Thrive Assessment Date Thrive assessed 06/10/25 07/12/25 13:02 Narrative Physical Exam Appearance: Alert. Oriented X3. No acute distress. Head: Normal external exam. Normocephalic. Atraumatic. Eyes: Pupils are equal, round, and reactive to light. Extraocular movements intact. Conjunctiva and sclera normal. Eyelids normal. Throat: Pharynx normal. Uvula midline. Moist mucous membranes. Neck: Normal inspection. Neck supple. Full range of motion. No adenopathy. No meningeal signs. Cardiovascular: Normal heart rate and rhythm. Heart sound normal. No murmurs no louis. Pulses normal throughout. Blood pressure recorded at 138/78. Respiratory: No respiratory distress. Painless inspiration. Breath sounds normal. No wheezes/rales/rhonchi noted. Chest nontender. No accessory muscle usage noted or decreased air movement noted. Lungs are completely clear. Back: Full range of motion noted. Skin: Skin warm and dry. Normal skin color. Normal skin turgor. No rashes/le sions/lacerations noted. Extremities: Extremities exhibit normal range of motion. Neuro: Oriented X 3. No motor deficit. No sensory deficit. Reflexes normal. Office Procedures Flu Questionnaire Does the patient have a severe egg allergy?: No Does the patient have severe life threatening allergies?: No Does the patient have a fever or illness today?: No Has the patient ever had Guillain-[place] Syndrome?: No Has the patient ever had any past reaction to a flu shot?: No Immunizations Fluarix [id number] (PF) 45 mcg (15 mcg x 3)/0.5 mL IM syringe Performing Provider: Sandie Lisa PA-C [facility] [place] [facility] Documented (not given) by: Maryann Jacobs on 07/12/25 13:17 Dose Route Admin Location Dispensed Lot Number Expiration Date [facility] Motion And Time Study Teacher 0.5 mL IM mL VIS Given Date VIS Provided VIS Publication Date 07/12/25 Single Vaccine 24 Eligibility Eligibility Date Funding Source Results Reviewed Results Reviewed: - Labs: Last HbA1c was 5.2%. - Last chemistry panel was done in April. Coding Level of Care Code Est Pt Level 4 (89417) Complex EM visit Add On G2211 Diagnoses Pre-op evaluation Z01.818 Primary osteoarthritis, right shoulder M19.011 Hypertension I10 Type 2 diabetes mellitus with hemoglobin A1c goal of less than 7.0% E11.9 Class 2 obesity with body mass index (BMI) of 38.0 to 38.9 in adult E66.812; Z68.38 Hypothyroidism E03.9 Congestion of nasal sinus R09.81 Follow-up exam Z09 Additional Codes JULIANA-7 Assessment Billing - JULIANA-7 Assessment Tool: JULIANA-7 Assessment 38351 ([id number]) PHQ-9 - 45630 - PHQ-9 Billing: Yes ([id number]) Time Spent (min) 60 Assessment & Plan Assessment & Plan (1) Pre-op evaluation: Code(s): Z01.818 - Encounter for other preprocedural examination Category: Medical Plan: The patient is cleared for her scheduled right reverse total shoulder arthroplasty. Pre-operative testing will include a non-fasting CBC, CMP, and magnesium level, along with an EKG, to be completed at [facility]. The patient was instructed to hold celecoxib for 3 days prior to surgery. All necessary pre-operative clearance paperwork will be completed and sent to the surgeon. (2) Primary osteoarthritis, right shoulder: Code(s): M19.011 - Primary osteoarthritis, right shoulder Category: Medical (3) Hypertension: Code(s): I10 - Essential (primary) hypertension Category: Medical Plan: The patient's blood pressure was mildly elevated at 138/78 mmHg, likely due to recently running out of lisinopril. A 90-day prescription for lisinopril 10 mg with 3 refills will be sent to her corrected pharmacy at [facility]. The patient was instructed to hold lisinopril and furosemide on the morning of surgery, but to take them the night before. She should continue taking atenolol. (4) Type 2 diabetes mellitus with hemoglobin A1c goal of less than 7.0%: Code(s): E11.9 - Type 2 diabetes mellitus without complications Category: Medical Plan: The patient is well-controlled with a recent HbA1c of 5.2%. She will continue her current regimen of metformin. She was instructed to hold her metformin on the day of surgery. (5) Class 2 obesity with body mass index (BMI) of 38.0 to 38.9 in adult: Code(s): E66.812 - Obesity, class 2; Z68.38 - Body mass index [BMI] 38.0-38.9, adult Category: Medical Plan: Given the patient's BMI of 39 and weight loss plateau, Zepbound was discussed as a treatment option. A prescription will be sent to assess for insurance approval. The patient was counseled on the once-weekly injection, administration sites, and the need for monthly follow-up for dose titration if approved. (6) Hypothyroidism: Code(s): E03.9 - Hypothyroidism, unspecified Category: Medical Plan: The patient will continue levothyroxine 100 mcg daily, including on the day of surgery. (7) Congestion of nasal sinus: Code(s): R09.81 - Nasal congestion Category: Medical Plan: The patient's nocturnal congestion is likely due to post-nasal drip. She was advised to continue her nasal spray and may try [id number] Karissa for symptom relief. (8) Follow-up exam: Code(s): Z09 - Encounter for follow-up examination after completed treatment for conditions other than malignant neoplasm Category: Medical Plan: A follow-up appointment was scheduled for August, after the , for a general check-up and repeat labs. Plan Plan Patient was informed and verbally consented to the use of an ambient scribe for clinic note documentation during this visit. 1. Primary Osteoarthritis Of Right Shoulder The patient is cleared for her scheduled right reverse total shoulder arthroplasty. Pre-operative testing will include a non-fasting CBC, CMP, and magnesium level, along with an EKG, to be completed at [facility]. The patient was instructed to hold celecoxib for 3 days prior to surgery. All necessary pre-operative clearance paperwork will be completed and sent to the surgeon. 2. Essential Hypertension The patient's blood pressure was mildly elevated at 138/78 mmHg, likely due to recently running out of lisinopril. A 90-day prescription for lisinopril 10 mg with 3 refills will be sent to her corrected pharmacy at [facility]. The patient was instructed to hold lisinopril and furosemide on the morning of surgery, but to take them the night before. She should continue taking atenolol. 3. Type 2 Diabetes Mellitus The patient is well-controlled with a recent HbA1c of 5.2%. She will continue her current regimen of metformin. She was instructed to hold her metformin on the day of surgery. 4. Obesity Given the patient's BMI of 39 and weight loss plateau, Zepbound was discussed as a treatment option. A prescription will be sent to assess for insurance approval. The patient was counseled on the once-weekly injection, administration sites, and the need for monthly follow-up for dose titration if approved. 5. Hypothyroidism The patient will continue levothyroxine 100 mcg daily, including on the day of surgery. 6. Nocturnal Congestion The patient's nocturnal congestion is likely due to post-nasal drip. She was advised to continue her nasal spray and may try [id number] Karissa for symptom relief. 7. Follow-Up A follow-up appointment was scheduled for August, after the , for a general check-up and repeat labs. Discussion Notes I have reviewed the plan for pre-operative clearance for the patient's right reverse total shoulder arthroplasty. I explained the necessity of obtaining an EKG and pre-operative labs, including a CBC, CMP, and magnesium, and directed her to the local hospital for these tests, which can be done on a walk-in basis without fasting. We discussed her current medications in detail, and I provided explicit instructions on which medications to hold prior to surgery: celecoxib for 3 days before, and lisinopril, furosemide, and metformin on the morning of the procedure. I advised her to take the held morning medications the night before surgery to maintain physiologic control. I am sending a 90-day refill for her lisinopril to her preferred pharmacy, as non-adherence likely contributed to her elevated blood pressure today. We also discussed Zepbound as a potential option for weight management, given her BMI of 39 and weight-loss plateau. I explained it is a once-weekly injection, and I will send the prescription to check for insurance coverage. I informed the patient that I will complete all the necessary clearance forms and send them directly to her surgeon. Finally, we scheduled a follow-up visit for August. Orders: Orders Magnesium Today Z00.00 - Encounter for general adult medical examination without abnormal findings Influenza [id number] Immunization Today Z23 - Encounter for immunization Complete Blood Count no Diff Today Z00.00 - Encounter for general adult medical examination without abnormal findings Comprehensive Met. Panel Today Z00.00 - Encounter for general adult medical examination without abnormal findings ECG 12 lead EKG Today Z01.818 - Encounter for other preprocedural examination Medications: New Fluarix [id number] (PF) (flu vac ts 2024-(6mos up)-PF) 0.5 mL IM ONCE 0.5 mL 0RF NS Z23 - Encounter for immunization tirzepatide (weight loss) (Zepbound) for 4 weeks 2.5 mg (0.5 mL) subcut QWEEK 2 mL 0RF E11.9 - Type 2 diabetes mellitus without complications, E66.812 - Obesity, class 2, Z68.38 - Body mass index [BMI] 38.0-38.9, adult Refilled lisinopril 10 mg PO DAILY 90 tabs 3RF Patient Instructions: Patient Instructions - Please go to [facility] to get your pre-surgery blood work and an EKG (heart tracing) done. - You can go anytime as a walk-in and you do not need to fast (it's okay to eat and drink beforehand). - Do not eat or drink anything after midnight the night before your surgery. - Medication Instructions for Surgery: - Stop taking Celebrex 3 days before your surgery. - On the morning of your surgery, DO NOT take your Lisinopril, Lasix (water pill), and Metformin. - You can take these medications the night before your surgery instead. - Continue taking your other medications, including atenolol (the other blood pressure pill), levothyroxine (thyroid pill), and your nasal spray, as you normally would. - A refill for your Lisinopril prescription has been sent to the [facility] pharmacy on [facility]. - We have sent a prescription for a new weight loss medication called Zepbound. - The pharmacy will call you if your insurance approves it. - For your nighttime stuffiness, you can try [id number] Karissa. - We have scheduled a follow-up appointment for you in August.
[2025-07-12 13:04] VITALS: BP 170/71; PULSE 69; TEMP 36.2; O2SAT 96; BMI 39.8
[2025-07-12 13:54] VITALS: BP 138/78
== END 2025-07-12 13:47 | disposition home or self-care (01) ==
LOC: HO.HMCSH 12:58
PROVIDERS: PCP Physician Assistant Medical; Visit Provider Physician Assistant Medical
DX: Z01.818 Encounter for other preprocedural examination (principal); M19.011 Primary osteoarthritis, right shoulder; I10 Essential (primary) hypertension; E11.9 Type 2 diabetes mellitus without complications; E66.812 Obesity, class 2; Z68.38 Body mass index [BMI] 38.0-38.9, adult; E03.9 Hypothyroidism, unspecified; R09.81 Nasal congestion; Z09 Encounter for follow-up examination after completed treatment for conditions other than malignant neoplasm; Z23 Encounter for immunization

== ENCOUNTER 2025-07-12 12:58 | Outpatient (REF) | payer BC, MEDICARE, OTHER, SELFPAY ==
--- NOTE | 2025-07-12 14:34 | ECG_ITS ---
Test Reason : PREOP Blood Pressure : */* mmHG Vent. Rate : 71 BPM Atrial Rate : 71 BPM P-R Int : 152 ms QRS Dur : 72 ms QT Int : 404 ms P-R-T Axes : 54 1 57 degrees QTcB Int : 439 ms Normal sinus rhythm Minimal voltage criteria for LVH, may be normal variant ( R in aVL ) Nonspecific ST and T wave abnormality Abnormal ECG When compared with ECG of 12-Nov-2008 16:00, Nonspecific T wave abnormality, worse in Anterolateral leads Referred By: Sandie Lisa Electronically Signed By: EVA RIVERA
[2025-07-12 15:04] LABS: Hematocrit 38.8 % (37.0-47.0); Hemoglobin 13.1 g/dl (12.0-16.0); Mean Corpuscular HGB Conc 33.8 g/dl (31.0-35.0); Mean Corpuscular Hemoglobin 31.1 pg (27.0-33.0); Mean Corpuscular Volume 92.2 fL (80.0-98.0); NRBC Abs Auto 0.000 X10*3/uL (0.0-0.012); NRBC Pct Auto 0.0 /100WBC (0.0-0.2); Platelet Count 241 X10*3/uL (160-400); Red Blood Count 4.21 X10*6/uL (4.20-5.50); White Blood Count 5.7 X10*3/uL (4.8-10.8)
[2025-07-12 15:23] LABS: Alanine Aminotransferase 27 U/L (0-31); Albumin Level 4.4 g/dL (3.5-5.0); Alkaline Phosphatase 88 U/L (39-117); Anion Gap 11 (12-20); Aspartate Amino Transferase 22 U/L (5-31); Blood Urea Nitrogen 16 mg/dL (9-16); Calcium 9.5 mg/dL (8.4-10.2); Carbon Dioxide 31 mmol/L (22-29); Chloride 106 mmol/L (96-108); Estimated Glomerular Filt Rate 59; Magnesium 2.0 mg/dL (1.6-2.6); Potassium 3.7 mmol/L (3.3-5.1); Sodium 144 mmol/L (135-145); Total Protein 6.6 g/dL (6.5-8.0)
--- OUTSIDE RECORDS SUMMARY | 2025-07-13 04:29 | XMS_ITS | Patient Health Record ---
Author Organization [facility] Address [address] [place] [id number] Care Team Providers Care Quality Control Engineer Name Role Phone Caleb SHAH, Yohana Primary Care Provider Anuel Paerdes Unavailable [phone] Zoë SHAH, Madelin Unavailable Unavailable Reason For Referral No Information Social History Tobacco Use: Social History Observation Description Date Details (start date - stop date) Never Smoker NA - NA Social History Tobacco Use: Social Info Question Answer Notes Tobacco Use/Smoking Patient is a nonsmoker Plan Of Treatment No Information Insurance Providers Payer Name Payer Address Payer Phone Subscriber Number Group Number Insured Name Patient Relationship to Insured Coverage Start Date Coverage End Date MEDICARE OF [place] [address] [place] [address] [id number] MARY DEMPSEY Self - patient is the insured Medical (General) History Medical History History ICD Code hypothyroidism hypertension Surgical History Surgery Date(Month/Year) hysterectomy bilateral hip replacement in 2002 tonsillectomy
== END 2025-07-12 12:59 | disposition home or self-care (01) ==
LOC: HO.LAB 12:58
PROVIDERS: PCP Physician Assistant Medical; Visit Provider Physician Assistant Medical
DX: Z00.00 Encounter for general adult medical examination without abnormal findings (principal); M19.011 Primary osteoarthritis, right shoulder; E11.9 Type 2 diabetes mellitus without complications; E03.9 Hypothyroidism, unspecified; I10 Essential (primary) hypertension; E66.812 Obesity, class 2; R09.81 Nasal congestion; Z09 Encounter for follow-up examination after completed treatment for conditions other than malignant neoplasm; Z28.89 Immunization not carried out for other reason; Z79.84 Long term (current) use of oral hypoglycemic drugs; Z68.38 Body mass index [BMI] 38.0-38.9, adult; Z79.899 Other long term (current) drug therapy
CPT/HCPCS: 36415; 80053; 83735; 85027; 90471; 93005; 96127

== ENCOUNTER → 2025-07-12 14:34 | Outpatient (BNV) | payer BC, MEDICARE, OTHER, SELFPAY | PROVIDERS: PCP Physician Assistant Medical; Visit Provider Internal Medicine | DX: R94.31 Abnormal electrocardiogram [ECG] [EKG] (principal); Z01.818 Encounter for other preprocedural examination | CPT/HCPCS: 93010 ==

== ENCOUNTER 2025-08-23 09:17 | Outpatient (AMB) | payer MEDICARE, OTHER, SELFPAY ==
[2025-08-23 09:18] VITALS: BP 160/70; PULSE 72; RESP 14; TEMP 36.7; O2SAT 97; BMI 39.3
--- NOTE | 2025-08-23 09:18 | MHC.PC.OV ---
Vital Signs 08/23/25 09:18 08/23/25 09:27 Height 5 ft 4.69 in Weight 234 lb BMI 39.3 BP 160/70 H 149/64 H Blood Pressure Location Lt brachial Lt brachial Position Sitting Sitting Respiration 14 Pulse 72 Pulse Source Pulse Oximeter Temp 98.0 F Temp Source Temporal Artery Scan Pulse Oximetry (%) 97 Oxygen Delivery Method Room Air Intake Visit Reasons: Cough Corn Chip Maker Required: No Allergies lisinopril Allergy (Mild, Verified 08/23/25 15:25) Cough valsartan Allergy (Mild, Verified 08/23/25 15:25) Cough general anesthesia Allergy (Unknown, Uncoded 08/23/25 15:25) vomiting Medication List - Last Reconciled 08/23/25 by Ej Palacios MD atenolol 100 mg PO DAILY celecoxib 200 mg PO DAILY fluticasone propionate 50 mcg/actuation 2 sprays intranasal DAILY furosemide (Lasix) 20 mg PO QAM levothyroxine 100 mcg PO DAILY loratadine (Claritin) 10 mg PO DAILY metformin 500 mg PO TID 90 days Tobacco use date assessed: 06/10/25 Dental Screening Dental Screen Date: 07/12/25 HPI HPI Comments History of Present Illness Details History of Present Illness - The patient is a 75-year-old female presenting for management of chronic conditions and medication refills. - Regarding her hypertension, the patient reports a history of profuse, constant coughing with lisinopril, which was discontinued. - She was subsequently prescribed valsartan 80 mg, which she also believes caused a severe cough, and she stopped taking it approximately two weeks ago. - The cough resolved the day after discontinuing valsartan. - She has been taking only atenolol since and reports a home blood pressure reading of 126/64 mmHg yesterday. - For diabetes, she takes metformin three times a day and is requesting a refill. - She notes that during a recent hospitalization, her metformin was held due to a blood glucose level of 5.2. - The patient underwent a right total shoulder replacement on August 04. - She is scheduled to begin physical therapy and was advised by her surgeon, Dr. Washington, that she may need a refill of oxycodone for pain. - A recent issue with constipation has resolved, and she is now having regular bowel movements. - Her last lab work was in June and was noted to be normal. - She has received her flu and COVID-19 vaccinations. Social History - The patient reports taking safety precautions in slippery weather, stating she brings her own salt to [facility] where she goes. Results - Labs: Last performed in June and were reported as good. - Home Blood Pressure Monitoring: Patient reported a reading of 126/64 mmHg yesterday. [facility] Medical History Follow-up exam Congestion of nasal sinus Primary osteoarthritis, right shoulder Pre-op evaluation Class 2 obesity with body mass index (BMI) of 38.0 to 38.9 in adult UTI (urinary tract infection) Elevated liver enzymes Dehydration Hyperlipidemia Type 2 diabetes mellitus with hemoglobin A1c goal of less than 7.0% Benitez's palsy History of mammogram (~11/02/24) Hypothyroidism Hypertension Surgical History History of total hip arthroplasty Family History Mother Acute arthritis Father BP (high blood pressure) Social History Housing: House Alcohol intake: current Alcohol intake frequency: does not drink Patient Tobacco Use Status: Never used Tobacco service: No Current occupational status: retired Cognitive needs: Yes (cane) Hearing needs: No Vision needs: Yes (rx glasses) Questionnaire PHQ-9 Over the last 2 weeks, how often have you been bothered by any of the following problems? 1. Little interest or pleasure in doing things: not at all 2. Feeling down, depressed, or hopeless: not at all 3. Trouble falling or staying asleep, or sleeping too much: not at all 4. Feeling tired or having little energy: not at all 5. Poor appetite or overeating: not at all 6. Feeling bad about yourself - or that you are a failure or have let yourself or your family down: not at all 7. Trouble concentrating on things, such as reading the newspaper or watching television: not at all 8. Moving or speaking so slowly that other people could have noticed. Or the opposite - being so fidgety or restless that you have been moving around a lot more than usual: not at all 9. Thoughts that you would be better off or of hurting yourself in some way: not at all Total score: 0 Depression Screening Interpretation: Negative Depression Screening Done: Yes 19291 - PHQ-9 Billing: Yes Source: Developed by Drs. Anuel Rivas, Jolie Rosas, Harjinder Gomez and colleagues, with an educational hansa from [employer]. Thrive Questionnaire Date Thrive assessed: 06/10/25 I am a: Patient What is your living situation today?: I have a steady place to live Within the past 12 months, did the food you bought not last and you didn't have the money to get more?: Never true Within the past 12 months, did you worry whether your food would run out before you got money to buy more?: Never true Do you have trouble paying for medicines?: No Do you have trouble getting transportation to medical appointments?: No Do you have trouble paying your heating and electricity bill?: No Do you have trouble taking care of your child, family member or friend?: No Do you have trouble with day-to-day activities such as bathing, preparing meals, shopping, managing finances, etc.?: No Are you currently unemployed and looking for a job?: No Are you interested in more education?: No Please select the resources that you would like help with: None THRIVE Score: 0 AUDIT C Alcohol Use Questionnaire (AUDIT-C) 1. How often do you have a drink containing alcohol?: Never 3. How often do you have six or more drinks on one occasion?: Never Total Score: 0 Score Reviewed/Action Taken: No JULIANA-7 AMB Questionnaire JULIANA-7 Date JULIANA - 7 assessed: 06/10/25 Feeling nervous, anxious, or on edge: 0 = Not at all Not being able to stop or control worryin = Not at all Worrying too much about different things: 0 = Not at all Trouble relaxin = Not at all Being so restless that it is hard to sit still: 0 = Not at all Becoming easily annoyed or irritable: 0 = Not at all Feeling afraid as if something awful might happen: 0 = Not at all Total JULIANA-7 score (0-4 normal; 5-9 mild; 10-14 moderate; 15-21 severe): 0 Source: Developed by Drs. Anuel Rivas, Jolie Rosas, Harjinder Gomez and colleagues, with an educational hansa from [employer]. JULIANA-7 Assessment Billing JULIANA-7 Assessment Tool: JULIANA-7 Assessment 18420 Review of Systems Narrative Review of Systems - Respiratory: Reports history of profuse, constant cough attributed to lisinopril and valsartan, which has since resolved after discontinuing the medications. - Gastrointestinal: Reports recent constipation that has now resolved. - All other systems reviewed and are negative. Physical exam (Primary Care) Vital Signs: Last Vital Signs Temp 98.0 F 08/23/25 09:18 Pulse 72 08/23/25 09:18 Resp 14 08/23/25 09:18 BP 149/64 H 08/23/25 09:27 Pulse Ox 97 08/23/25 09:18 Oxygen Delivery Method Room Air 08/23/25 09:18 BMI result Body Mass Index 39.3 Tobacco/Smoking Status: Tobacco use Status Tobacco use date assessed 06/10/25 08/23/25 09:23 Patient Tobacco Use Status Never used Tobacco 08/23/25 09:23 PHQ-9: PHQ-9 Score PHQ-9: Total score 0 08/23/25 10:08 Depression Screening Interpretation: Negative Thrive Assessment: Date of Thrive Assessment Date Thrive assessed 06/10/25 08/23/25 09:23 Narrative Physical Exam General: Appearance normal, both eyes and all related structures Nutritional Appearance: Well nourished Orientation/consciousness: Patient oriented x3 Limitations: No limitations Head: Normal to inspection Neck: Normal visual inspection Chest: Normal palpation of entire chest wall Respiratory: Cough present Neurology: Patient oriented x3 Coding Level of Care Code Est Pt Level 4 (24073) Add On Problem Visit Only Diagnoses Hypertension I10 Additional Codes JULIANA-7 Assessment Billing - JULIANA-7 Assessment Tool: JULIANA-7 Assessment 21604 ([id number]) PHQ-9 - 00544 - PHQ-9 Billing: Yes ([id number]) Assessment & Plan Assessment & Plan (1) Hypertension: Code(s): I10 - Essential (primary) hypertension Category: Medical Plan Plan - Hypertension: Discontinue atenolol. - Type 2 Diabetes Mellitus: Continue metformin three times daily; a prescription refill was sent. - Postoperative Care: The patient was advised to contact her surgeon, Dr. Washington, for a refill of oxycodone if needed for pain during physical therapy. - Follow-up: The patient will follow up in six months. Discussion Notes I discussed the patient's report of a profuse cough, which she attributed to both lisinopril and, more recently, valsartan. I noted that while a cough is a known side effect of lisinopril, it is not typically associated with valsartan. She reported discontinuing valsartan on her own two weeks ago with complete resolution of her cough. Based on this and her recent blood pressure readings, we agreed to discontinue atenolol. I sent a refill for her metformin for diabetes management. Regarding her recent right shoulder replacement, I advised her to contact her surgeon for pain medication for her upcoming physical therapy. We reviewed that her recent labs were normal, she is up to date on her vaccinations, and I advised her to return for a follow-up visit in six months. All her questions were answered. Patient Instructions - You should stop taking your atenolol medication. - Continue taking metformin three times a day as prescribed. A refill has been sent to your pharmacy. - If you need pain medication for your physical therapy sessions, please call your surgeon, Dr. Washington. - Be careful when walking outdoors as surfaces may be slippery. - Please schedule a follow-up appointment in six months. Medications: Refilled metformin 500 mg PO TID 270 tabs 1RF 90 days
[2025-08-23 09:27] VITALS: BP 149/64
--- OUTSIDE RECORDS SUMMARY | 2025-08-23 09:34 | XMS_ITS | Patient Health Record ---
Author Organization [facility] Address [address] [place] [address] Care Team Providers Care Income Auditor Name Role Phone Caleb SHAH, Yohana Primary Care Provider Anuel Paredes Unavailable [phone] Zoë SHAH, Madelin Unavailable Unavailable Reason For [...] OF [place] [address] [place] [address] [id number] MARY DEMPSEY Self - patient is the insured Medical (General) History Medical History History ICD Code hypothyroidism hypertension Surgical History Surgery Date(Month/Year) hysterectomy bilateral hip replacement in 2002 tonsillectomy
--- OUTSIDE RECORDS SUMMARY | 2025-08-23 09:34 | XMS_ITS | Encounter Summary ---
Author Organization [facility] Address [address] [place] [address] Care Team Providers Care Tobacco Grower Name Role Phone Physician, Pcp Unknown Primary Care Provider Esmer vailable Encounter Details Date Type Department Care Team (Latest Contact Info) Description 02/08/2025 Lab Requisition [facility] - Main Lab [address] [place] [address] Tanya Trotter PA [address] [facility] [address] [place] [address] Essential (primary) hypertension; Hypothyroidism, unspecified; [...] unspecified Type 2 diabetes mellitus without complications ([facility] V24, [facility] V28) MAGNESIUM Routine 02/08/2025 5:10 AM EDT Essential (primary) hypertension Hypothyroidism, unspecified Vitamin D deficiency, unspecified Type 2 diabetes mellitus without complications ([facility] V24, [facility] V28) HEMOGLOBIN A1C Routine 02/08/2025 5:10 AM EDT Essential (primary) hypertension Hypothyroidism, unspecified Vitamin D deficiency, unspecified Type 2 diabetes mellitus without complications ([facility] V24, [facility] V28) FOLATE Routine 02/08/2025 5:10 AM EDT Essential (primary) hypertension Hypothyroidism, unspecified Vitamin D deficiency, unspecified Type 2 diabetes mellitus without complications ([facility] V24, [facility] V28) COMPREHENSIVE METABOLIC PANEL Routine 02/08/2025 5:10 AM EDT Essential (primary) hypertension Hypothyroidism, unspecified Vitamin D deficiency, unspecified Type 2 diabetes mellitus without complications ([facility] V24, [facility] V28) documented in this encounter Results * Hemoglobin A1c (02/08/2025 5:10 AM EDT) Hemoglobin A1C 4.8 <6.5 % LAB CHEMISTRY METHOD 02/08/2025 2:24 PM EDT [facility] Mean Bld Glu Estim. 91 mg/dL LAB CHEMISTRY METHOD 02/08/2025 2:24 PM EDT [facility] Blood Venous blood specimen / Unknown Venipuncture / Unknown 02/08/2025 5:10 AM EDT 02/08/2025 10:14 AM EDT us Tanya RAMIREZ LAB BLOOD ORDERABLES Final Resu lt [facility] [address] [place] [address], [place] [phone] * Vitamin D 25 hydroxy (02/08/2025 5:10 AM EDT) [facility] Vit D, 25-Hydroxy 35.5 30.0 - 80.0 ng/mL LAB CHEMISTRY METHOD 02/08/2025 3:10 PM EDT [facility] Blood Venous blood specimen / Unknown Venipuncture / Unknown 02/08/2025 5:10 AM EDT 02/08/2025 10:14 AM EDT us Tanya RAMIREZ LAB BLOOD ORDERABLES Final Resu lt [facility] [address] [place] [address], [place] [phone] * Magnesium (02/08/2025 5:10 AM EDT) [facility] Magnesium 2.1 1.9 - 2.6 mg/dL LAB CHEMISTRY METHOD 02/08/2025 2:07 PM EDT [facility] Blood Venous blood specimen / Unknown Venipuncture / Unknown 02/08/2025 5:10 AM EDT 02/08/2025 10:14 AM EDT us Tanya RAMIREZ LAB BLOOD ORDERABLES Final Resu lt [facility] [address] [place] [address], [place] [phone] * Folate (02/08/2025 5:10 AM EDT) [facility] Folate 16.1 2.8 - 17.0 ng/ml LAB CHEMISTRY METHOD 02/08/2025 2:24 PM EDT [facility] Blood Venous blood specimen / Unknown Venipuncture / Unknown 02/08/2025 5:10 AM EDT 02/08/2025 10:14 AM EDT Tanya RAMIREZ LAB BLOOD ORDERABLES Final Resu lt Performing Organization Address City/[facility]/ZIP Co de Phone Number [facility] [address] [place] [address], [place] [phone] * Thyroid stimulating hormone (02/08/2025 5:10 AM EDT) [facility] TSH 4.00 0.40 - 4.00 mcIU/mL LAB CHEMISTRY METHOD 02/08/2025 3:10 PM EDT [facility] Blood Venous blood specimen / Unknown Venipuncture / Unknown 02/08/2025 5:10 AM EDT 02/08/2025 10:14 AM EDT Tanya RAMIREZ LAB BLOOD ORDERABLES Final Resu lt Performing Organization Address [facility]/ZIP Co de Phone Number [facility] [address] [place] [address], [place] [phone] * (ABNORMAL) Comprehensive metabolic panel (02/08/2025 5:10 AM EDT) [facility] Sodium 138 133 - 145 mmol/L LAB CHEMISTRY METHOD 02/08/2025 2:07 PM EDT [facility] Potassium 3.7 3.5 - 5.5 mmol/L LAB CHEMISTRY METHOD 02/08/2025 2:07 PM EDT [facility] Chloride 100 96 - 110 mmol/L [facility] CO2 31 21 - 32 mmol/L LAB CHEMISTRY METHOD 02/08/2025 2:07 PM T [facility] Anion Gap 7 3 - 11 LAB CHEMISTRY METHOD 02/08/2025 2:07 PM T [facility] Glucose 81 70 - 100 mg/dL LAB CHEMISTRY METHOD 02/08/2025 2:07 PM [facility] BUN 17 5 - 25 mg/dL LAB CHEMISTRY METHOD 02/08/2025 2:07 PM [facility] Creatinine 0.70 0.50 - 1.10 mg/dL LAB CHEMISTRY METHOD 02/08/2025 2:07 PM [facility] eGFR 90 >=60 mL/min/1. 73m2 LAB CHEMISTRY METHOD 02/08/2025 2:07 PM [facility] Comment:Calculation based on the Chronic Kidney Disease Epidemiology Collaboration (CKD-EPI) equation refit without adjustment for race. BUN/Creatinine Ratio 24.3 LAB CHEMISTRY METHOD 02/08/2025 2:07 PM [facility] Calcium 9.9 8.5 - 10.5 mg/dL LAB CHEMISTRY METHOD 02/08/2025 2:07 PM [facility] AST (SGOT) 13 10 - 42 unit/L LAB CHEMISTRY METHOD 02/08/2025 2:07 PM [facility] ALT (SGPT) 17 10 - 60 unit/L LAB CHEMISTRY METHOD 02/08/2025 2:07 PM [facility] Alkaline Phosphatase 105 42 - 121 unit/L LAB CHEMISTRY METHOD 02/08/2025 2:07 PM [facility] Total Protein 5.8(L) 6.0 - 8.0 g/dL LAB CHEMISTRY METHOD 02/08/2025 2:07 PM [facility] Albumin 3.6 3.2 - 5.0 g/dL LAB CHEMISTRY METHOD 02/08/2025 2:07 PM [facility] Total Bilirubin 1.7(H) 0.0 - 1.4 mg/dL LAB CHEMISTRY METHOD 02/08/2025 2:07 PM [facility] Blood Venous blood specimen / Unknown Venipuncture / Unknown 02/08/2025 5:10 AM EDT 02/08/2025 10:14 AM EDT us Tanya RAMIREZ LAB BLOOD ORDERABLES Final Resu lt [facility] [address] [place] [address], * Complete blood count (02/08/2025 5:10 AM EDT) WBC 5.6 4.8 - 10.8 K/mcL LAB HEMETOLOGY METHOD 02/08/2025 11:38 AM EDT [facility] RBC 3.80 3.80 - 4.80 M/mcL LAB HEMETOLOGY METHOD 02/08/2025 11:38 AM EDT [facility] Hemoglobin 11.8 11.5 - 16.0 g/dL LAB HEMETOLOGY METHOD 02/08/2025 11:38 AM EDT [facility] Hematocrit 36.2 35.0 - 47.0 % LAB HEMETOLOGY METHOD 02/08/2025 11:38 AM EDT [facility] MCV 95.0 79.0 - 98.0 FL LAB HEMETOLOGY METHOD 02/08/2025 11:38 AM EDT [facility] MCH 31.0 27.0 - 32.0 pcg LAB HEMETOLOGY METHOD 02/08/2025 11:38 AM EDT [facility] MCHC 32.6 32.0 - 37.0 g/dL LAB HEMETOLOGY METHOD 02/08/2025 11:38 AM EDT [facility] RDW 14.6 11.0 - 15.0 % LAB [facility]OLOG[facility]08[facility]2025 11[facility] Platelets 233 130 - 400 K/mcL LAB HEMETOLOGY METHOD 02/08/2025 11:38 AM EDT [facility] MPV 9.3 7.0 - 11.0 FL LAB HEMETOLOGY METHOD 02/08/2025 11:38 AM EDT [facility] NRBC 0.0 <1.0 % LAB HEMETOLOGY METHOD 02/08/2025 11:38 AM EDT [facility] NRBC Absolute 0.00 <0.10 K/mcL LAB HEMETOLOGY METHOD 02/08/2025 11:38 AM EDT [facility] Blood Venous blood specimen / Unknown Venipuncture / Unknown 02/08/2025 5:10 AM EDT 02/08/2025 10:14 AM EDT us Tanya RAMIREZ LAB BLOOD ORDERABLES Final Resu lt [facility] [address] [place] [address], documented in this encounter Visit Diagnoses Diagnosis Essential (primary) hypertension Unspecified essential hypertension Hypothyroidism, unspecified Vitamin D deficiency, unspecified Type 2 diabetes mellitus without complications (CMS/HCC V24, CMS/HCC V28) documented in this encounter Care Teams Tobacco Grower Relationship Specialty Start Date End Date Physician, Pcp Unknown PCP - General 06/07/25 documented as of this encounter
--- OUTSIDE RECORDS SUMMARY | 2025-08-23 09:34 | XMS_ITS | Encounter Summary ---
Author Organization [facility] Address [address] [place] [address] Care Team Providers Care Board Machine Set Up Operator Name Role Phone Physician, Pcp Unknown Primary Care Provider Esmer vailable Encounter Details Date Type Department Care Team (Late st Contact Info) Description 02/12/2025 Lab Requisition [facility] - Main Lab [address] [facility] [place] [address] Bella Maravilla MD [address] [place], [place] [id number] Essential (primary) hypertension Social History Tobacco Use [...] Complete blood count (02/15/2025 5:19 AM EDT) [facility] Signature WBC 5.3 4.8 - 10.8 K/[facility] LAB HEMETOLOGY METHOD 02/15/2025 10:40 AM EDT [facility] RBC 3.70(L) 3.80 - 4.80 M/mcL LAB HEMETOLOGY METHOD 02/15/2025 10:[address] [facility] Hemoglobin 11.4(L) 11.5 - 16.0 g/dL LAB HEMETOLOGY METHOD 02/15/2025 10:[address] [facility] Hematocrit 34.9(L) 35.0 - 47.0 % LAB HEMETOLOGY METHOD 02/15/2025 10:[address] [facility] MCV 94.1 79.0 - 98.0 FL LAB HEMETOLOGY METHOD 02/15/2025 10:[address] [facility] MCH 30.7 27.0 - 32.0 pcg LAB HEMETOLOGY METHOD 02/15/2025 10:[address] [facility] MCHC 32.7 32.0 - 37.0 g/dL LAB HEMETOLOGY METHOD 02/15/2025 10:[address] [facility] RDW 14.3 11.0 - 15.0 % LAB HEMETOLOGY METHOD 02/15/2025 10:[address] [facility] Platelets 208 130 - 400 K/mcL LAB HEMETOLOGY METHOD 02/15/2025 10:[address] [facility] MPV 9.4 7.0 - 11.0 FL LAB HEMETOLOGY METHOD 02/15/2025 10:[address] [facility] NRBC 0.0 <1.0 % LAB HEMETOLOGY METHOD 02/15/2025 10:[address] [facility] NRBC Absolute 0.00 <0.10 K/mcL LAB HEMETOLOGY METHOD 02/15/2025 10:[address] [facility] Blood Venous blood specimen / Unknown Venipuncture / Unknown 02/15/2025 5:19 AM EDT 02/15/2025 10:08 AM EDT us Bella Maravilla MD LAB BLOOD ORDERABLES Final Resul t [facility] [address] [place] [address], * (ABNORMAL) Basic metabolic panel (02/15/2025 5:19 AM EDT) Sodium 146(H) 133 - 145 mmol/L LAB CHEMISTRY METHOD 02/15/2025 11:[address] [facility] Potassium 3.3(L) 3.5 - 5.5 mmol/L LAB CHEMISTRY METHOD 02/15/2025 11:[address] [facility] Chloride 106 96 - 110 mmol/L LAB CHEMISTRY METHOD 02/15/2025 11:[address] [facility] CO2 29 21 - 32 mmol/L LAB CHEMISTRY METHOD 02/15/2025 11:[address] [facility] Anion Gap 11 3 - 11 LAB CHEMISTRY METHOD 02/15/2025 11:[address] [facility] Glucose 83 70 - 100 mg/dL LAB CHEMISTRY METHOD 02/15/2025 11:[address] [facility] BUN 14 5 - 25 mg/dL LAB CHEMISTRY METHOD 02/15/2025 11:[address] [facility] Creatinine 0.66 0.50 - 1.10 mg/dL LAB CHEMISTRY METHOD 02/15/2025 11:[address] [facility] eGFR 91 >=60 mL/min/1. 73m2 LAB CHEMISTRY METHOD 02/15/2025 11:[address] [facility] Comment:Calculation based on the Chronic Kidney Disease Epidemiology Collaboration (CKD-EPI) equation refit without adjustment for race. BUN/Creatinine Ratio 21.2 LAB CHEMISTRY METHOD 02/15/2025 11:[address] [facility] Calcium 9.7 8.5 - 10.5 mg/dL LAB CHEMISTRY METHOD 02/15/2025 11:48 AM EDT [facility] Blood Venous blood specimen / Unknown Venipuncture / Unknown 02/15/2025 5:19 AM EDT 02/15/2025 10:08 AM EDT us Bella Maravilla MD LAB BLOOD ORDERABLES Final Resul t [facility] [address] [place] [address], [place] [phone] documented in this encounter Visit Diagnoses Diagnosis Essential (primary) hypertension Unspecified essential hypertension documented in this encounter Care Teams Board Machine Set Up Operator Relationship Specialty Start Date End Date Physician, Pcp Unknown PCP - General 06/07/25 documented as of this encounter
--- OUTSIDE RECORDS SUMMARY | 2025-08-23 09:34 | XMS_ITS | Encounter Summary ---
Author Organization [facility] [place] [address] Care Team Providers Care Manager Of Care Name Role Phone Physician, Pcp Unknown Primary Care Provider Esmer vailable Encounter Details Date Type Department Care Team (Late st Contact Info) Description 02/17/2025 Lab Requisition [facility] - Main Lab [address] [facility] [place] [address] Bella Maravilla MD [address] [place] [address] Hypokalemia Social History Tobacco Use Types Packs/Day [...] LAB CHEMISTRY METHOD 02/18/2025 11:11 AM EDT [facility] ([facility]) [facility] Blood Venous blood specimen / Unknown Venipuncture / Unknown 02/18/2025 5:24 AM EDT 02/18/2025 10:30 AM EDT us Bella Maravilla MD LAB BLOOD ORDERABLES Final Resul t [facility] LAB [address] [place] [address], [place] [phone] * Basic metabolic panel (02/18/2025 5:24 AM EDT) Sodium 140 133 - 145 mmol/L LAB CHEMISTRY METHOD 02/18/2025 11:11 AM [facility] LAB Potassium 3.7 3.5 - 5.5 mmol/L LAB CHEMISTRY METHOD 02/18/2025 11:11 AM [facility] LAB Chloride 103 96 - 110 mmol/L LAB CHEMISTRY METHOD 02/18/2025 11:11 AM [facility] LAB CO2 32 21 - 32 mmol/L LAB CHEMISTRY METHOD 02/18/2025 11:11 AM [facility] LAB Anion Gap 5 3 - 11 LAB CHEMISTRY METHOD 02/18/2025 11:11 AM [facility] LAB Glucose 86 70 - 100 mg/dL LAB CHEMISTRY METHOD 02/18/2025 11:11 AM [facility] LAB BUN 19 5 - 25 mg/dL LAB CHEMISTRY METHOD 02/18/2025 11:11 AM [facility] LAB Creatinine 0.64 0.50 - 1.10 mg/dL LAB CHEMISTRY METHOD 02/18/2025 11:11 AM [facility] LAB eGFR 92 >=60 mL/min/1. 73m2 LAB CHEMISTRY METHOD 02/18/2025 11:11 AM [facility] LAB Comment:Calculation based on the Chronic Kidney Disease Epidemiology Collaboration (CKD-EPI) equation refit without adjustment for race. BUN/Creatinine Ratio 29.7 LAB CHEMISTRY METHOD 02/18/2025 11:11 AM [facility] LAB Calcium 10.1 8.5 - 10.5 mg/dL LAB CHEMISTRY METHOD 02/18/2025 11:11 AM EDT [facility] LAB Blood Venous blood specimen / Unknown Venipuncture / Unknown 02/18/2025 5:24 AM EDT 02/18/2025 10:30 AM EDT us Bella Maravilla MD LAB BLOOD ORDERABLES Final Resul t [facility] [address] [place] [address], [place] [phone] documented in this encounter Visit Diagnoses Diagnosis Hypokalemia Hypopotassemia documented in this encounter Care Teams Manager Of Care Relationship Specialty Start Date End Date Physician, Pcp Unknown PCP - General 06/07/25 documented as of this encounter
--- OUTSIDE RECORDS SUMMARY | 2025-08-23 09:34 | XMS_ITS | Encounter Summary ---
Author Organization [facility] Address [address] [place] [address] Care Team Providers Care Dressage Judge Name Role Phone Physician, Pcp Unknown Primary Care Provider Esmer vailable Encounter Details Date Type Department Care Team (Late st Contact Info) Description 02/19/2025 Lab Requisition [facility] - Main Lab [address] [facility] [place] [address] Bella Maravilla MD [address] [place], [place] [id number] Essential (primary) hypertension Social History Tobacco Use [...] hypertension documented in this encounter Care Teams Dressage Judge Relationship Specialty Start Date End Date Physician, Pcp Unknown PCP - General 06/07/25 documented as of this encounter
--- OUTSIDE RECORDS SUMMARY | 2025-08-23 09:34 | XMS_ITS | Clinical Summary ---
Author Organization [facility] Address [address] [place] [address] Phone Care Team Providers Care Pneumatic Deicer Inspector Name Role Phone Physician, Pcp Unknown Primary [...] EDT - 06/07/2025 7:38 PM EDT Emergency [facility] Emergency [address] [place] [address] Christopher Mcintosh MD Benitez palsy (Primary Dx) Discharge Disposition: Home or Self Care from Last 3 Months Surgical History Surgery Date Site/Laterality Comments TONSILLECTOMY HYSTERECTOMY TOTAL HIP ARTHROPLASTY Bilateral Medical History Medical History Date Comments Hypertension Diabetes mellitus (CMS/[facility] V24, CMS/[facility] V28) Disease of thyroid gland Arthritis Edema [...] Screening 08/26/2024 COVID-19 Vaccine ( season) 2025 06/06/2025, 05/29/2024, 03/09/2024, Additional history exists RSV Immunization Adult Patients Completed 06/17/2023 Influenza Vaccine Completed 06/06/2025, , 04/28/2023, Additional [...] age to complete this topic Insurance MEDICARE [facility] Member Subscriber Plan / Payer (Ef fective 2024-Present) Name:MARY SALGUERO Relation to Subscriber:Spouse Name:CHAMP YADAV Date of :1899 Address: [address] [place] [id number] Payer ID:[id number] Group ID:[id number] Type:Not on file Address: [address] [place] [address] [facility] Advance Directives Documents on File Type Date Recorded Patient Real Estate Analyst Expl anation Advance Directives and Ashlyin g Will 02/10/2025 2:14 PM PROXY Care Teams Pneumatic Deicer Inspector Relationship Specialty Start Date End Date Physician, Pcp Unknown PCP - General 06/07/25
== END 2025-08-23 09:45 | disposition home or self-care (01) ==
LOC: HO.HMCSH 09:17
PROVIDERS: PCP Physician Assistant Medical; Visit Provider Internal Medicine
DX: I10 Essential (primary) hypertension (principal)

== ENCOUNTER → 2025-08-23 09:17 | Outpatient (BNVA) | payer BC, MEDICARE, OTHER, SELFPAY | PROVIDERS: PCP Physician Assistant Medical; Visit Provider Internal Medicine | DX: I10 Essential (primary) hypertension (principal); E11.9 Type 2 diabetes mellitus without complications; Z79.84 Long term (current) use of oral hypoglycemic drugs; Z79.899 Other long term (current) drug therapy | CPT/HCPCS: 96127; 99212 ==